=== PATIENT | male | born 1965 | race American Indian/Alaskan Native ===

== ENCOUNTER 2017-01-13 22:21 | Emergency (ER) | payer SELFPAY ==
--- NOTE | 2017-01-13 23:06 | Emergency Department Report ---
<LISETH PAINTER S - Last Filed: 01/14/17 02:35> ED Fall HPI - General Chief Complaint: Fall Stated Complaint: RIB PAIN/DIARRHEA Time Seen by Provider: 01/13/17 23:05 - Related Data Previous Rx's Medication Instructions Recorded Last Taken Type HYDROcodone/APAP 5-325 [[place] 1 each PO Q6HR PRN #12 tablet 01/14/17 Unknown Rx 5/325] Allergies Allergy/AdvReac Type Severity Reaction Status Date / Time No Known Allergies Allergy Verified 01/14/17 03:36 ED Review of Systems ROS: Stated complaint: RIB PAIN/DIARRHEA Other details as noted in HPI ED Past Medical Hx - Medications Home Medications: Home Medications Medication Instructions Recorded Confirmed Last Taken Type HYDROcodone/APAP 5-325 [[place] 1 each PO Q6HR PRN #12 tablet 01/14/17 Unknown Rx 5/325] ED Course Vital Signs 01/13/17 01/13/17 01/13/17 22:29 22:34 23:52 Temperature 97.5 F L 97.5 F L Pulse Rate 91 H 91 H Respiratory 20 18 20 Rate Blood Pressure 158/105 Blood Pressure 158/105 [Left] Blood Pressure 158/105 [Right] O2 Sat by Pulse 97 97 Oximetry 01/14/17 01/14/17 01/14/17 01:41 03:15 03:31 Temperature 98.5 F Pulse Rate 82 Respiratory 18 18 20 Rate Blood Pressure Blood Pressure [Left] Blood Pressure 138/82 [Right] O2 Sat by Pulse 99 Oximetry ED Medical Decision Making - Lab Data Result diagrams: 01/13/17 23:48 01/13/17 23:48 Critical care attestation.: If time is entered above; I have spent that time in minutes in the direct care of this critically ill patient, excluding procedure time. ED Disposition Clinical Impression: Neck pain, Rib pain Fall Qualifiers: Encounter type: initial encounter Qualified Code(s): W19.XXXA - Unspecified fall, initial encounter Back pain Qualifiers: Back pain location: back pain in unspecified location Chronicity: acute Back pain laterality: unspecified Qualified Code(s): M54.9 - Dorsalgia, unspecified Hypertension Qualifiers: Hypertension type: essential hypertension Qualified Code(s): I10 - Essential ( primary) hypertension Disposition: DISCHARGED TO HOME OR SELFCARE Is pt being admited?: No Condition: Stable Instructions: Chest Pain (ED), Costochondritis (ED), Hypertension (ED), Back Pain (ED), Fall Prevention (ED) Additional Instructions: Please follow-up with a primary care doctor in the next few days. Return to the emergency department with any worsening of your symptoms or any acute distress. You've been prescribed a medication that is sedating. Therefore this medication cannot be mixed with alcohol, or taken prior to driving, working, or being responsible for children. Prescriptions: HYDROcodone/APAP 5-325 [[place] 5/325] 1 each PO Q6HR PRN #12 tablet PRN Reason: Pain Referrals: PRIMARY CARE, [Primary Care Provider] - 3-5 Days HARI GALLOWAY MD, PHD [Staff Physician] - 3-5 Days [facility] [Outside] - 3-5 Days Time of Disposition: 02:38 <FABRICE GONZALEZ - Last Filed: 01/16/17 19:01> ED Fall HPI - General Source: patient, family Mode of arrival: Ambulatory Limitations: Physical Limitation - History of Present Illness Initial Comments: Patient here reports that he fell off the back of the truck At approximately 4: 30 PM. Truck was at a standstill and he was unloading IM and he said he tripped and fell. Patient is complaining of bilateral rib pain. Pain is worse on the left side than on the right side. He is complaining of chest wall pain, neck pain and back pain. Foot pain is 10 out of 10. Patient reports that he feels dizzy and had some nausea at this point he came to the emergency room. After the accident, patient went home. He said he applied ice and heat and also took aspirin. Patient reports that he lost consciousness for about 15 seconds which was witnessed and also complaining of headache and generalized. Denies alcohol use. He also reports that he was having some diarrhea. Patient left foot pain is shooting down his abdomen but denies any abdominal pain. He also reports that he was having some difficulty breathing. Patient's also complaining of lower extremity pain but he did not land on his feet. 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 denies: numbness, weakness, chest paint, abdominal pain, hematuria, confusion ED Review of Systems Comment: All other systems reviewed and negative Constitutional: denies: chills, fever Eyes: denies: vision change ENT: denies: hearing loss, epistaxis Respiratory: shortness of breath, SOB with exertion. denies: cough, orthopnea, SOB at rest, stridor, wheezing Cardiovascular: chest pain (chest wall pain). denies: palpitations, edema, syncope Gastrointestinal: nausea. denies: vomiting, diarrhea, constipation Musculoskeletal: back pain, arthralgia Skin: denies: rash Neurological: headache, abnormal gait, other (dizziness). denies: weakness, numbness, paresthesias, confusion ED Past Medical Hx - Past Medical History Previous Medical History?: Yes Hx Hypertension: Yes - Surgical History Past Surgical History?: No - Family History Family history: hypertension - Social History Smoking Status: Never Smoker Substance Use Type: None ED Physical Exam - General Limitations: No Limitations General appearance: alert - Head Head exam: Present: atraumatic, normocephalic, normal inspection - Expanded Head Exam Expanded Head exam: Present: other (mild erythema to occipital skull but no abrasion or contusion.). Absent: laceration, abrasion, contusion, hematoma, racoon eyes, kim's sign, general tenderness, tenderness of temporal artery, CSF rhinorrhea , CSF otorrhea - Eye Eye exam: Present: normal appearance, PERRL, EOMI, other (peripheral vision intact). Absent: nystagmus, periorbital swelling, periorbital tenderness - ENT ENT exam: Present: normal exam, normal orophraynx, mucous membranes moist, TM's normal bilaterally, normal external ear exam - Expanded ENT Exam peripheral vision intact Ear exam: Present: normal external inspection Mouth exam: Present: normal external inspection Throat exam: Positive: normal inspection - Neck Neck exam: Present: normal inspection, tenderness, full ROM. Absent: meningismus, lymphadenopathy - Expanded Neck Exam Expanded Neck exam: Present: tenderness. Absent: midline deformity, anterior neck swelling, tracheal deviation - Respiratory Respiratory exam: Present: normal lung sounds bilaterally, chest wall tenderness. Absent: respiratory distress, accessory muscle use, decreased breath sounds, prolonged expiratory - Cardiovascular Cardiovascular Exam: Present: regular rate, normal rhythm, normal heart sounds - GI/Abdominal GI/Abdominal exam: Present: soft, normal bowel sounds. Absent: distended, tenderness, guarding, rebound, rigid, organomegaly, mass - Extremities Exam Extremities exam: Present: normal inspection, full ROM, normal capillary refill. Absent: pedal edema, joint swelling, calf tenderness - Back Exam Back exam: Present: normal inspection, full ROM, tenderness, paraspinal tenderness, vertebral tenderness. Absent: CVA tenderness (R), CVA tenderness (L ), muscle spasm, rash noted - Expanded Back Exam Expanded Back exam: Present: saddle anesthesia Back exam: Negative Straight Leg Raising: Left, Right - Neurological Exam Neurological exam: Present: alert, oriented X3, abnormal gait (due to fall.), reflexes normal - Expanded Neurological Exam Expanded Neurological exam: Absent: innattentive, memory loss-remote event, memory loss- recent event, ataxia, receptive aphasia, expressive aphasia, total aphasia, tremor, protecting the airway Patient oriented to: Present: person, place, time Speech: Present: fluid speech Cranial nerves: EOM's Intact: Normal, Gag Reflex: Normal, Nystagmus: Normal, Facial Sensation: Normal Cerebellar function: Romberg: Normal Upper motor neuron: Pronator Drift: Normal, Sensory Extinction: Normal Sensory exam: Upper Extremity Light Touch: Normal, Upper Extremity Temperature: Normal, UE 2 Point Discrimination: Normal, Lower Extremity Light Touch: Normal, Lower Extremity Temperature: Normal, LE 2 Point Discrimination: Normal Motor strength exam: RUE: 5, LUE: 5, RLE: 5, LLE: 5 DTR: bicep (R): 2+, bicep (L): 2+, tricep (R): 2+, tricep (L): 2+, knee (R): 2+ , knee (L): 2+, ankle (R): 2+, ankle (L): 2+ Best Eye Response (Cotter): (4) open spontaneously Best Motor Response (Cotter): (6) obeys commands Best Verbal Response (Cotter): (5) oriented Sridhar Total: 15 - Psychiatric Psychiatric exam: Present: normal affect, normal mood - Skin Skin exam: Present: warm, dry, intact, normal color. Absent: rash ED Course - Reevaluation(s) Reevaluation #1: 01/14/17 00:01 Patient given Dilaudid 1 mg, Zofran 4 mg IV. IV fluid normal saline. Patient awaiting multiple scans. ED Medical Decision Making - Lab Data Result diagrams: 01/13/17 23:48 01/13/17 23:48 Lab Results 01/13/17 01/13/17 Range/Units 23:48 23:48 WBC 9.5 (4.5-11.0) K/mm3 RBC 5.08 H (3.65-5.03) M/mm3 Hgb 13.3 (11.8-15.2) gm/dl Hct 40.5 (35.5-45.6) % MCV 80 L (84-94) fl MCH 26 L (28-32) pg MCHC 33 (32-34) % RDW 15.4 H (13.2-15.2) % Plt Count 234 (140-440) K/mm3 Lymph % (Auto) 21.2 (13.4-35.0) % [place] % (Auto) 6.6 (0.0-7.3) % Eos % (Auto) 2.9 (0.0-4.3) % Baso % (Auto) 0.3 (0.0-1.8) % Lymph # 2.0 (1.2-5.4) K/mm3 [place] # 0.6 (0.0-0.8) K/mm3 Eos # 0.3 (0.0-0.4) K/mm3 Baso # 0.0 (0.0-0.1) K/mm3 Seg Neutrophils % 69.0 (40.0-70.0) % Seg Neutrophils # 6.6 (1.8-7.7) K/mm3 Sodium 141 (137-145) mmol/L Potassium 4.1 (3.6-5.0) mmol/L Chloride 100.5 (98-107) mmol/L Carbon Dioxide 25 (22-30) mmol/L Anion Gap 20 mmol/L BUN 16 (9-20) mg/dL Creatinine 1.2 (0.8-1.5) mg/dL Estimated GFR > 60 ml/min BUN/Creatinine Ratio 13.33 % Glucose 97 (75-100) mg/dL Calcium 9.1 (8.4-10.2) mg/dL Total Bilirubin 0.2 (0.1-1.2) mg/dL AST 43 H (5-40) units/L ALT 17 (7-56) units/L Alkaline Phosphatase 68 (35-129) units/L Total Protein 7.7 (6.3-8.2) g/dL Albumin 4.6 (3.9-5) g/dL Albumin/Globulin Ratio 1.5 % - Radiology Data Radiology results: report reviewed CT scan of the head and brain without contrast revealed no gross acute intracranial abnormality CT Scan of the chest without contrast reveals no gross acute intrathoracic injury. Mild atelectasis at the lung bases. Bilateral ribs are grossly intact no discrete fracture. bilateral rib x-ray grossly intact. Chest x-ray reveals shallow inspiration. Mild linear atelectasis at the lung bases. - Medical Decision Making ED course: Patient presents to the emergency room hours after falling off the back of his truck. Multiple scans were done which were negative. This is communicated to patient and family. Patient given Dilaudid 1 mg and Zofran 4 mg along with 1 L of IV fluid in emergency room. Pain controlled. Patient discharged from ED room after being treated and given multiple referrals. Patient discharged home with his family member with prescription for hydrocodone. ED Disposition Is pt being admited?: No Does the pt Need Aspirin: No
[2017-01-13] MEDS: DILAUDID IV ONE (23:52)
[2017-01-13] MEDS: NACL 0.9% 1000 ML 1,000 ML IV ONE (23:52)
[2017-01-13] MEDS: ZOFRAN IV ONE (23:53)
[2017-01-13 23:57] LABS: Basophils % (Auto) 0.3 % (0.0-1.8); Eosinophils % (Auto) 2.9 % (0.0-4.3); Hematocrit 40.5 % (35.5-45.6); Hemoglobin 13.3 gm/dl (11.8-15.2); Mean Corpuscular HGB Conc 33 % (32-34); Mean Corpuscular Hemoglobin 26 pg (28-32); Mean Corpuscular Volume 80 fl (84-94); Platelet Count 234 K/mm3 (140-440); Red Blood Count 5.08 M/mm3 (3.65-5.03); Red Cell Distribution Width 15.4 % (13.2-15.2); White Blood Count 9.5 K/mm3 (4.5-11.0)
--- NOTE | 2017-01-14 00:28 | Cat Scan Report ---
FINAL REPORT EXAM: CT HEAD/BRAIN WO CON HISTORY: Fall with haynes and loc COMPARISON: None available. TECHNIQUE: Axial images obtained skull base through vertex. FINDINGS: No acute intracranial hemorrhage, midline shift or pathologic extra axial fluid collection. Ventricles and cisterns are normal in size and configuration for the patient's age. Ruggiero-white differentiation preserved. Calvarium grossly intact. Mild to moderate polypoid mucosal thickening of the paranasal sinuses. Tiny amount of fluid within the left mastoid air cells. IMPRESSION: No grossly acute intracranial abnormality.
--- NOTE | 2017-01-14 00:32 | Cat Scan Report ---
FINAL REPORT EXAM: CT CERVICAL SPINE WO CON HISTORY: Fall with neck pain COMPARISON: None available. TECHNIQUE: Axial images obtained through the cervical spine. Additional sagittal and coronal reformatted images were obtained. FINDINGS: Straightening of the normal lordotic curvature of the cervical spine. Cervical vertebral body heights are preserved. No acute fracture or traumatic subluxation. Odontoid process, articular pillars and occipital condyles are intact. Moderate to severe loss of disc height C3-C4 through C6-C7 levels. Mild to moderate canal stenosis and moderate to severe foraminal narrowing at those levels due to endplate osteophyte, uncovertebral hypertrophy and facet degenerative changes. IMPRESSION: No acute fracture or subluxation of the cervical spine. There is straightening of the normal lordotic curvature which may relate to patient positioning or muscle spasm. Moderate degenerative changes of the cervical spine.
[2017-01-14 00:33] LABS: Alanine Aminotransferase 17 units/L (7-56); Albumin 4.6 g/dL (3.9-5); Albumin/Globulin Ratio 1.5 %; Alkaline Phosphatase 68 units/L (35-129); Anion Gap 20 mmol/L; BUN/Creatinine Ratio 13.33; Bilirubin,Total 0.2 mg/dL (0.1-1.2); Blood Urea Nitrogen 16 mg/dL (9-20); Calcium 9.1 mg/dL (8.4-10.2); Carbon Dioxide 25 mmol/L (22-30); Chloride 100.5 mmol/L (98-107); Glucose 97 mg/dL (75-100); Potassium 4.1 mmol/L (3.6-5.0); Sodium 141 mmol/L (137-145); Total Protein 7.7 g/dL (6.3-8.2)
--- NOTE | 2017-01-14 00:33 | XRay Report ---
FINAL REPORT EXAM: XR CHEST ROUTINE 2V HISTORY: fall with chest wall pain COMPARISON: None available. FINDINGS:: Frontal and lateral views of the chest obtained. Cardiac silhouette is within normal limits. Shallow inspiration with linear atelectasis at the lung bases. No large consolidation or effusion. No pneumothorax. Thoracic vertebral body heights are grossly preserved. IMPRESSION:: Shallow inspiration. Mild linear atelectasis at the lung bases.
--- NOTE | 2017-01-14 00:35 | XRay Report ---
FINAL REPORT EXAM: Bilateral ribs. HISTORY: fall with rib pain COMPARISON: Chest x-ray from the same date. FINDINGS: 5 total images of the ribs obtained. No step-off deformity identified. Nondisplaced fracture may not be apparent by plain film. Bilateral are grossly intact. IMPRESSION: Bilateral ribs are grossly intact.
--- NOTE | 2017-01-14 00:56 | Cat Scan Report ---
FINAL REPORT EXAM: CT CHEST WO CON HISTORY: fall from vehicle with rib pain lt chest /upper abd pain COMPARISON: Plain films of the chest and ribs from the same date. TECHNIQUE: Contiguous axial images were obtained. Coronal and sagittal reformats obtained. FINDINGS: Heart upper limits of normal in size. Thoracic aorta normal in caliber. No pathologically enlarged intrathoracic or axillary lymph nodes. Calcified right hilar lymph nodes. Mild linear atelectasis at the lung bases. No dense airspace consolidation or pleural effusion. No pneumothorax or pneumomediastinum. Tracheobronchial tree is patent. Visualized ribs are grossly intact. No discrete rib fracture. Thoracic vertebral body heights are preserved. The sternum is intact. IMPRESSION: No gross acute intrathoracic injury. Mild atelectasis at the lung bases. Bilateral ribs are grossly intact. No discrete fracture.
[2017-01-14] MEDS: MORPHINE IV ONE (01:41)
--- NOTE | 2017-01-14 02:10 | Cat Scan Report ---
FINAL REPORT PROCEDURE: CT ABDOMEN PELVIS WO CON TECHNIQUE: Computerized axial tomography of the abdomen and pelvis was performed without intravenous contrast. This study is performed without intravascular contrast material and its sensitivity for abdominal and pelvic pathology, including neoplasms, inflammation, abscess, free fluid, thrombosis, arterial dissection and infarction, is reduced compared with a contrast enhanced study. HISTORY: fall from vehicle with pelvic/back pain LT CHEST/UPPER ABD PAIN COMPARISON: No prior studies are available for comparison. FINDINGS: Visualized lower thorax: There is atelectasis at the lung bases.. There are calcified lymph nodes in the right hilum. Liver: Normal size and attenuation. Spleen: Normal size and attenuation. Gallbladder and biliary system: There has been a cholecystectomy.. Pancreas: Normal. Adrenals: Normal. Kidneys: Normal. GI tract: Normal. Lymph nodes and mesentery: Normal. Vasculature: Normal. Bladder: Normal. Reproductive organs: Normal. Peritoneum: There is no hemoperitoneum.. Musculoskeletal structures: No significant abnormality. Other: None. IMPRESSION: There is no evidence of acute traumatic injury..
[2017-01-14 03:16] VITALS: BP 138/82
[2017-01-14] MEDS ORDERED: TORADOL ONE (03:17)
[2017-01-14] MEDS: TORADOL IM ONE (03:31)
== END 2017-01-14 03:34 | disposition home or self-care (01) ==
LOC: ED 22:21
DX: R07.81 Pleurodynia (principal); M54.2 Cervicalgia; M54.9 Dorsalgia, unspecified; I10 Essential (primary) hypertension; W17.89XA Other fall from one level to another, initial encounter; Y93.89 Activity, other specified; Y92.89 Other specified places as the place of occurrence of the external cause; Y99.8 Other external cause status
CPT/HCPCS: 36415; 70450; 71020; 71110; 71250; 72125; 74176; 80053; 85025; 93005; 93010; 96361; 96372; 96374; 96375; 99284; J1170; J1885; J2270; J2405; J7030

== ENCOUNTER 2017-04-19 07:34 | Emergency (ER) | payer SELFPAY ==
[2017-04-19 07:42] VITALS: BP 144/95
--- NOTE | 2017-04-19 08:31 | Emergency Department Report ---
HPI - General Chief Complaint: Urogenital-Male Time Seen by Provider: 04/19/17 08:29 - HPI HPI: Patient is a 52-year-old male presents to ED complaining of burning type pain with urination as well as week. Patient states about almost a week ago he went home visiting his Stadol IM and had unprotected intercourse with female. States couple of days after he started to x-ray is some burning with urination. Patient denies penile discharge ,scrotum pain, penile pain, fever, nausea, vomiting, abdominal pain or any other problems. ED Past Medical Hx - Past Medical History Previous Medical History?: No Hx Hypertension: Yes - Surgical History Past Surgical History?: No - Social History Smoking Status: Never Smoker Substance Use Type: Alcohol - Medications Home Medications: Home Medications Medication Instructions Recorded Confirmed Last Taken Type HYDROcodone/APAP 5-325 [[place] 1 each PO Q6HR PRN #12 tablet 01/14/17 Unknown Rx 5/325] ED Review of Systems ROS: Stated complaint: STD Other details as noted in HPI Constitutional: denies: chills, fever Eyes: denies: eye pain, eye discharge, vision change ENT: denies: ear pain, throat pain Respiratory: denies: cough, shortness of breath, wheezing Cardiovascular: denies: chest pain, palpitations Endocrine: no symptoms reported Gastrointestinal: denies: abdominal pain, nausea, diarrhea Genitourinary: denies: urgency, dysuria Musculoskeletal: denies: back pain, joint swelling, arthralgia Skin: denies: rash, lesions Neurological: denies: headache, weakness, paresthesias Psychiatric: denies: anxiety, depression Hematological/Lymphatic: denies: easy bleeding, easy bruising Physical Exam - Physical Exam Vital Signs: Vital Signs 04/19/17 07:37 Temperature 97.7 F Pulse Rate 61 Respiratory 16 Rate Blood Pressure 144/95 O2 Sat by Pulse 99 Oximetry Physical Exam: GENERAL: Alert and oriented x3, no apparent distress, Normal Gait, atraumatic. HEAD: Head is normocephalic and a-traumatic. NECK: Supple. Non edematous, No carotid bruits. No lymphadenopathy or thyromegaly. No C-spine tenderness LUNGS: Symetrical with respiration, No wheezing, no rales or crackles, CTAB. HEART: S1, S2 present, regular rate and rhythm without murmur, no rubs, no gallops. ABDOMEN: No organomegaly was noted,Positive bowel sounds, soft, and non- distended. . Nontender to palpation on all Quadrants, NO CVA tenderness. UROGENITAL: No scrotal mass, Scrotum non tender to palpation bilaterally, no hernia, no scars or penile discharge. SKIN: Warm and dry, No lesions, No ulceration or induration present. ED Course Vital Signs 04/19/17 07:37 Temperature 97.7 F Pulse Rate 61 Respiratory 16 Rate Blood Pressure 144/95 O2 Sat by Pulse 99 Oximetry ED Medical Decision Making - Medical Decision Making 52-year-old male presents with STD exposure. ED course: Analysis and gonorrhea and Chlamydia cultures obtained. Urinalysis negative Patient received 250 mg of Rocephin, azithromycin 1 g, Flagyl 2 g. Discussed with patient possible STD due to exposure. Discussed with patient urinalysis findings and empiric treatment. Discussed prophylaxis treatment patient is to abstain from sex 7-10 days as treatment. Discussed patient partner knowledge and treatment. Discussed the follow-up with the health department for further STD testing. Patient's alert and oriented times 3 fast signs are normal patient is in no acute or respiratory discharge. Patient will be discharged home with instructions. He was treated empirically due to complaints of dysuria Critical care attestation.: If time is entered above; I have spent that time in minutes in the direct care of this critically ill patient, excluding procedure time. ED Disposition Clinical Impression: STD exposure, Dysuria Disposition: DISCHARGED TO HOME OR SELFCARE Is pt being admited?: No Does the pt Need Aspirin: No Condition: Stable Instructions: Safe Sex (ED), Sexually Transmitted Diseases (ED) Additional Instructions: Follow-up with the health department for further STD testing. you were Treated empirically for STDs in the ED Referrals: PRIMARY CARE, [Primary Care Provider] - 3-5 Days [facility] [Outside] - 3-5 Days [facility] [Outside] - 3-5 Days Time of Disposition: 09:40
[2017-04-19 09:16] LABS: Bilirubin,Urine NEG (Negative); Blood,Urine NEG (Negative); Ketones,Urine TR mg/dL (Negative); Leukocyte Esterase,Urine NEG (Negative); Mucus,Urine FEW /HPF; Nitrite,Urine NEG (Negative); Protein,Urine <15 mg/dL mg/dL (Negative); Urobilinogen,Urine < 2.0 mg/dL (<2.0); WBC,Urine < 1.0 /HPF (0.0-6.0)
[2017-04-19] MEDS ORDERED: FLAGYL PO ONE (09:27)
[2017-04-19] MEDS ORDERED: ROCEPHIN IM ONE (09:27)
[2017-04-19] MEDS ORDERED: ZITHROMAX PO ONE (09:27)
[2017-04-19] MEDS ORDERED: XYLOCAINE 1% MPF 5 mL INFILTRATI ONE (09:27)
== END 2017-04-19 10:22 | disposition home or self-care (01) ==
LOC: ED 07:34
DX: R30.0 Dysuria (principal); Z20.2 Contact with and (suspected) exposure to infections with a predominantly sexual mode of transmission; I10 Essential (primary) hypertension
CPT/HCPCS: 81001; 87591; 96372; 99283; J0696

== ENCOUNTER 2017-06-03 13:51 | Emergency (ER) | payer SELFPAY ==
[2017-06-03 14:49] LABS: Bilirubin,Urine NEG (Negative); Blood,Urine NEG (Negative); Ketones,Urine NEG (Negative); Leukocyte Esterase,Urine NEG (Negative); Mucus,Urine FEW /HPF; Nitrite,Urine NEG (Negative); Protein,Urine <15 mg/dL mg/dL (Negative)
[2017-06-03 14:51] LABS: Urobilinogen,Urine < 2.0 mg/dL (<2.0); WBC,Urine < 1.0 /HPF (0.0-6.0)
[2017-06-03] MEDS ORDERED: XYLOCAINE 1% MPF 5 mL INFILTRATI ONE (16:26)
[2017-06-03] MEDS ORDERED: ROCEPHIN IM ONE (16:26)
[2017-06-03] MEDS ORDERED: ZITHROMAX PO ONE (16:26)
--- NOTE | 2017-06-03 16:29 | Emergency Department Report ---
HPI - General Chief Complaint: Urogenital-Male Time Seen by Provider: 06/03/17 16:26 - HPI HPI: This is a 52-year-old Afro-[place] male presents to the emergency department from home with 2 different complaints. First, the patient complains of some intermittent headaches he has been getting ever since he fell sleep with the stove gas on. He says that the gas was on for multiple hours at night that was Wednesday, 4 days ago. The headaches come and go. He denies any vision change, slurred speech, vomiting, chest pain, shortness of breath or any neurological deficits but he does get some nausea. The second complaint is concern for possible STD as the patient says that he recently had a sexual encounter with a new partner that was "questionable. He did use a condom but it broke. He denies any discharge or lesions. He does have some burning with urination that has been going on for the past 1.5 weeks. He does not have a primary care doctor. No recent travel or sick contacts at home. ED Past Medical Hx - Past Medical History Previous Medical History?: Yes Hx Hypertension: Yes - Surgical History Past Surgical History?: No - Social History Smoking Status: Never Smoker Substance Use Type: Alcohol, Non Opiate Pain - Medications Home Medications: Home Medications Medication Instructions Recorded Confirmed Last Taken Type HYDROcodone/APAP 5-325 [[place] 1 each PO Q6HR PRN #12 tablet 01/14/17 Unknown Rx 5/325] ED Review of Systems ROS: Stated complaint: STD/SF Other details as noted in HPI Comment: All other systems reviewed and negative Constitutional: denies: chills, fever Eyes: denies: eye pain, eye discharge, vision change ENT: denies: ear pain, throat pain Respiratory: denies: cough, shortness of breath, wheezing Cardiovascular: denies: chest pain, palpitations Gastrointestinal: nausea. denies: abdominal pain, vomiting Genitourinary: dysuria. denies: discharge Musculoskeletal: denies: back pain, joint swelling, arthralgia Skin: denies: rash, lesions Neurological: headache. denies: weakness, paresthesias Physical Exam - Physical Exam Vital Signs: Vital Signs 06/03/17 13:59 Temperature 99 F Pulse Rate 90 Respiratory 20 Rate Blood Pressure 142/94 O2 Sat by Pulse 97 Oximetry Physical Exam: GENERAL: The patient is well-developed well-nourished. HEENT: Normocephalic. Atraumatic. Extraocular motions are intact. Patient has moist mucous membranes. Pupils equal reactive to light bilaterally. No nystagmus. NECK: Supple. Trachea is midline. CHEST/LUNGS: Clear to auscultation. There is no respiratory distress noted. HEART/CARDIOVASCULAR: Regular. There is no tachycardia. There is no gallop rub or murmur. ABDOMEN: Abdomen is soft, nontender. Patient has normal bowel sounds. There is no abdominal distention. SKIN: Skin is warm and dry. NEURO: The patient is awake, alert, and oriented. The patient is cooperative. The patient has no focal neurologic deficits. The patient has normal speech. Cranial nerves II through XII grossly intact. No pronator drift. MUSCULOSKELETAL: There is no tenderness or deformity. There is no limitation range of motion. There is no evidence of acute injury. ED Course Vital Signs 06/03/17 13:59 Temperature 99 F Pulse Rate 90 Respiratory 20 Rate Blood Pressure 142/94 O2 Sat by Pulse 97 Oximetry ED Medical Decision Making - Medical Decision Making 52-year-old male presents with 2 different complaints. One complaint is possible exposure to STDs. He was treated with Rocephin and azithromycin for possible exposure to gonorrhea and chlamydia. At his request a RPR was sent and he will be contacted if positive for penicillin treatment. His other complaint was headache. He does not have any focal, motor or sensory deficits and his cranial nerves are intact. He does not complain of any current discomfort. He is concerned that there was exposure to gases at his house a few days ago. Carboxyhemoglobin is 11 and ABG is unremarkable for any sign of carbon monoxide or toxic gas poisoning. Vital signs stable throughout his ED course. There is no urinary tract infection. He was given a referral for multiple primary care clinics. He will return to the ER with any worsening of symptoms or any acute distress. - Differential Diagnosis , monoxide exposure, tension headache, cluster headache, gonorrhea, chlamyd Critical Care Time: No Critical care attestation.: If time is entered above; I have spent that time in minutes in the direct care of this critically ill patient, excluding procedure time. ED Disposition Clinical Impression: Exposure to STD, Intermittent headache Disposition: DC- TO HOME OR SELFCARE Is pt being admited?: No Condition: Stable Instructions: Safe Sex (ED), Acute Headache (ED) Additional Instructions: Please follow-up with a primary care physician in the next few days. Return to the emergency department with any worsening of your symptoms or any acute distress. Referrals: PRIMARY CARE, [Primary Care Provider] - 3-5 Days [facility] [Outside] - 3-5 Days [facility] [Outside] - 3-5 Days [facility] [Outside] - 3-5 Days Time of Disposition: 18:07
[2017-06-03 17:59] LABS: ABG Base Excess -0.9 mmol/L (-2.0-3.0); ABG HCO3 24.5 mmol/L (20.0-26.0); ABG Oxygen Saturation 97.2 % (95.0-99.0); ABG PH 7.373 pH Units (7.350-7.450); ABG PO2 93.7 mm Hg (80.0-90.0)
[2017-06-03 18:33] VITALS: BP 140/91
== END 2017-06-03 18:33 | disposition home or self-care (01) ==
LOC: ED 13:51
DX: R51 Headache (principal); Z20.2 Contact with and (suspected) exposure to infections with a predominantly sexual mode of transmission
CPT/HCPCS: 36415; 81001; 82375; 82803; 86592; 96372; 99283; J0696

== ENCOUNTER 2017-06-26 20:26 | Inpatient (IN) | payer OTHER ==
[2017-06-26] MEDS ORDERED: BABY ASPIRIN PO ONE (21:12)
--- NOTE | 2017-06-26 21:15 | Emergency Department Report ---
ED Chest Pain HPI - General Chief Complaint: Chest Pain Stated Complaint: CHEST PAIN Time Seen by Provider: 06/26/17 21:11 Source: patient Mode of arrival: Ambulatory Limitations: No Limitations - History of Present Illness Initial Comments: 52-year-old male who presents with chest pain that radiates to his back. Patient states that he is hypertension and the chest pain is severe 9 out of 10 nothing makes it better or worse. He says is an achy type of pain and he gets short of breath while he has the chest pain. The chest pain radiates to his back. Patient states he's never had chest pain like this before in his life. He states that he supposed to be taking aspirin but he has not been taking it.. - Related Data Previous Rx's Medication Instructions Recorded Last Taken Type HYDROcodone/APAP 5-325 [[place] 1 each PO Q6HR PRN #12 tablet 01/14/17 Unknown Rx 5/325] Allergies Allergy/AdvReac Type Severity Reaction Status Date / Time ibuprofen Allergy Unknown Verified 04/19/17 07:43 nortriptyline Allergy Anaphylaxis Verified 04/19/17 07:43 Heart Score - HEART Score History: Moderately suspicious EKG: Non-specific Age: 45-65 Risk factors: 1-2 risk factors Troponin: < normal limit HEART Score: 4 ED Review of Systems ROS: Stated complaint: CHEST PAIN Other details as noted in HPI Constitutional: denies: chills, fever Eyes: denies: eye pain, eye discharge, vision change ENT: denies: ear pain, throat pain Respiratory: denies: cough, shortness of breath, wheezing Cardiovascular: chest pain Endocrine: no symptoms reported Gastrointestinal: denies: abdominal pain, nausea, diarrhea Genitourinary: denies: urgency, dysuria Musculoskeletal: back pain Skin: denies: rash, lesions Neurological: denies: headache, weakness, paresthesias Psychiatric: denies: anxiety, depression Hematological/Lymphatic: denies: easy bleeding, easy bruising ED Past Medical Hx - Past Medical History Hx Hypertension: Yes - Surgical History Past Surgical History?: No - Social History Smoking Status: Never Smoker Substance Use Type: Alcohol - Medications Home Medications: Home Medications Medication Instructions Recorded Confirmed Last Taken Type HYDROcodone/APAP 5-325 [[place] 1 each PO Q6HR PRN #12 tablet 01/14/17 Unknown Rx 5/325] ED Physical Exam - General Limitations: No Limitations General appearance: alert, in no apparent distress - Head Head exam: Present: atraumatic, normocephalic - Eye Eye exam: Present: normal appearance - ENT ENT exam: Present: mucous membranes moist - Neck Neck exam: Present: normal inspection - Respiratory Respiratory exam: Present: normal lung sounds bilaterally. Absent: respiratory distress - Cardiovascular Cardiovascular Exam: Present: regular rate, normal rhythm. Absent: systolic murmur, diastolic murmur, rubs, gallop - GI/Abdominal GI/Abdominal exam: Present: soft, normal bowel sounds - Rectal Rectal exam: Present: deferred - Extremities Exam Extremities exam: Present: normal inspection - Back Exam Back exam: Present: normal inspection - Neurological Exam Neurological exam: Present: alert, oriented X3 - Skin Skin exam: Present: diaphoretic ED Course Vital Signs 06/26/17 06/26/17 06/26/17 20:45 21:33 21:35 Temperature 98.5 F 99 F 99.2 F Pulse Rate 99 H 96 H 96 H Respiratory 16 18 Rate Blood Pressure 137/85 121/67 Blood Pressure 121/67 [Left] O2 Sat by Pulse 95 96 96 Oximetry 06/26/17 06/27/17 22:48 02:02 Temperature 98 F Pulse Rate 84 Respiratory 18 18 Rate Blood Pressure Blood Pressure 110/70 [Left] O2 Sat by Pulse 97 Oximetry - Reevaluation(s) Reevaluation #1: 06/27/17 01:32 And states that his chest pains better. OMAR score - Omar Score Age > 65: (0) No Aspirin use within the Past 7 Days: (0) No 3 or more CAD Risk Factors: (1) Yes 2 or more Angina events in past 24 hrs: (1) Yes Known CAD with more than 50% Stenosis: (0) No Elevated Cardiac Markers: (0) No ST Deviation Greater than 0.5mm: (0) No OMAR Score: 2 ED Medical Decision Making - Lab Data Result diagrams: 06/26/17 22:02 06/26/17 22:02 Laboratory Results - last 24 hr 06/26/17 06/26/17 06/27/17 22:02 22:02 00:27 WBC 6.5 RBC 4.91 Hgb 12.9 Hct 39.7 MCV 81 L MCH 26 L MCHC 33 RDW 16.0 H Plt Count 204 Lymph % (Auto) 37.0 H Bennett % (Auto) 7.0 Eos % (Auto) 5.5 H Baso % (Auto) 0.2 Lymph # 2.4 Bennett # 0.5 Eos # 0.4 Baso # 0.0 Seg Neutrophils % 50.3 Seg Neutrophils # 3.3 Sodium 142 Potassium 4.1 Chloride 103.4 Carbon Dioxide 23 Anion Gap 20 BUN 13 Creatinine 1.4 Estimated GFR > 60 BUN/Creatinine Ratio 9.28 Glucose 87 Calcium 8.7 Troponin T < 0.010 < 0.010 - EKG Data -: EKG Interpreted by Me - EKG Data 06/27/17 01:33 EKG shows normal sinus rhythm no ST segment elevations or T-wave inversions. No peaked T waves no LVH. - Radiology Data Radiology results: pending - Medical Decision Making Chief medical diagnosis: non-STEMI Differential medical diagnosis: Aortic dissection, pneumothorax We'll get CBC, CMP, troponin, EKG, dissection protocol. Critical care attestation.: If time is entered above; I have spent that time in minutes in the direct care of this critically ill patient, excluding procedure time. ED Disposition Clinical Impression: Myalgia Chest pain Qualifiers: Chest pain type: unspecified Qualified Code(s): R07.9 - Chest pain, unspecified Disposition: -09 OP ADMIT IP TO THIS HOSP Is pt being admited?: Yes Does the pt Need Aspirin: No Condition: Stable Instructions: Chest Pain (ED) Referrals: PRIMARY CARE, [Primary Care Provider] - 3-5 Days Time of Disposition: 02:13
[2017-06-26] MEDS ORDERED: MORPHINE IV ONE (21:23)
[2017-06-26 22:17] LABS: Basophils % (Auto) 0.2 % (0.0-1.8); Eosinophils % (Auto) 5.5 % (0.0-4.3); Hematocrit 39.7 % (35.5-45.6); Hemoglobin 12.9 gm/dl (11.8-15.2); Mean Corpuscular HGB Conc 33 % (32-34); Mean Corpuscular Hemoglobin 26 pg (28-32); Mean Corpuscular Volume 81 fl (84-94); Platelet Count 204 K/mm3 (140-440); Red Blood Count 4.91 M/mm3 (3.65-5.03); White Blood Count 6.5 K/mm3 (4.5-11.0)
--- NOTE | 2017-06-26 22:34 | XRay Report ---
FINAL REPORT EXAM: XR CHEST ROUTINE 2V HISTORY: chest pain TECHNIQUE: 2 views of the chest. PRIORS: None. FINDINGS: The cardiomediastinal silhouette appears normal. The lungs are clear. The bones and soft tissues are unremarkable. IMPRESSION: No evidence of acute cardiopulmonary disease
[2017-06-26 23:09] LABS: BUN/Creatinine Ratio 9.28; Blood Urea Nitrogen 13 mg/dL (9-20); Carbon Dioxide 23 mmol/L (22-30); Glucose 87 mg/dL (75-100)
[2017-06-26 23:10] LABS: Anion Gap 20 mmol/L; Calcium 8.7 mg/dL (8.4-10.2); Chloride 103.4 mmol/L (98-107); Potassium 4.1 mmol/L (3.6-5.0); Sodium 142 mmol/L (137-145)
[2017-06-26] MEDS ORDERED: NACL ONE (23:13)
[2017-06-27] MEDS ORDERED: SUBLIMAZE IV ONE ×2 (01:46)
--- NOTE | 2017-06-27 01:59 | Cat Scan Report ---
FINAL REPORT EXAM: CT ANGIO CHEST HISTORY: concern for dissection chest pain COMPARISON: None available. TECHNIQUE: Contiguous axial images were obtained. Additional sagittal and coronal reformatted images were obtained. Max intensity projection images. 100 cc Omnipaque 350. FINDINGS: Heart upper limits of normal in size. Thoracic aorta normal in caliber. No dissection. No pulmonary embolus. No pathologically enlarged intrathoracic or axillary lymph nodes. Noncalcified nodule right middle lobe measuring 5 millimeters. Multiple calcified right hilar lymph nodes. Mild linear atelectasis or scarring at the lung bases. No dense consolidation or effusion. Remote left-sided rib fractures. Gallbladder surgically absent. Thoracic vertebral body heights are preserved. IMPRESSION: Thoracic aorta is normal in caliber. No dissection or rupture. No pulmonary embolus. Remote granulomatous disease. Mild linear scarring or atelectasis at the lung bases. No acute infiltrates or effusions. Noncalcified nodule right middle lobe measuring 5 millimeters. This may be postinflammatory. Followup chest CT suggested within the next 12 months to ensure stability.
--- NOTE | 2017-06-27 02:11 | Cat Scan Report ---
FINAL REPORT EXAM: CT ANGIO ABDOMEN PELVIS HISTORY: concern for dissection chest pain COMPARISON: None available. TECHNIQUE: Contiguous axial images were obtained. Additional sagittal and coronal reformatted images were obtained. Administration of IV contrast given per institution protocol. Images submitted for interpretation. 100 cc Omnipaque 350. FINDINGS: Abdominal aorta is normal in caliber. Aorta measures 2 centimeters in diameter. No dissection or rupture. Celiac, superior mesenteric, bilateral renal, inferior mesenteric arteries are patent. Iliac arteries are patent. Please see CT of the chest from the same day for further details of the lung bases. Gallbladder surgically absent. Liver, spleen, pancreas and adrenal glands are unremarkable. No solid renal lesion. No hydronephrosis. Urinary bladder and prostate gland are grossly unremarkable. No free fluid or lymphadenopathy. The appendix is normal in caliber. There is fluid-like stool in the colon. No associated wall thickening or fat stranding. Tiny umbilical hernia containing fat only. Bony pelvis and lumbar spine are grossly intact. IMPRESSION: Abdominal aorta is normal in caliber. No dissection or rupture. Fluid-like stool within the colon. This is a nonspecific finding that can be seen in the setting of very early or mild inflammation the colon. No other gross acute findings.
--- NOTE | 2017-06-27 03:18 | History and Physical Report ---
History of Present Illness Date of examination: 06/27/17 History of present illness: 64-year-old man history of hypertension comes emergency room with complaints of left-sided chest pain that started yesterday. He describes the pain as a pressure-like sensation in the epigastric area, constant, intensity 7/10, radiating to the left side of the back, he cannot identify exacerbating or relieving factors. He denies nausea vomiting, diaphoresis, palpitation, shortness of breath. Review Of Systems: Constitutional: no fever, chills, weight loss Ears, eyes, nose, mouth and throat: no nasal congestion, no nasal discharge, no sinus pressure, blurry vision, diplopia Neck: No neck pain or rigidity. Cardiovascular: chest pain, orthopnea, palpitations Respiratory: No shortness of breath, cough Gastrointestinal: abdominal pain, hematochezia Genitourinary : no dysuria, frequency , hematuria Musculoskeletal: no joint swelling or muscle ache Integumentary: no rash, no pruritis Neurological: no parathesia Endocrine: no cold or heat intolerance, no polyuria or polydipsia Hematologic/Lymphatic: no easy bruising, no easy bleeding, no gland swelling Allergic/Immunologic: no urticaria, no angioedema. PAST MEDICAL HISTORY:hypertension PAST SURGICAL HISTORY: None FAMILY HISTORY: Hypertension SOCIAL HISTORY: Social alcohol, no tobacco or drugs Medications and Allergies Allergies Allergy/AdvReac Type Severity Reaction Status Date / Time ibuprofen Allergy Unknown Verified 04/19/17 07:43 nortriptyline Allergy Anaphylaxis Verified 04/19/17 07:43 Home Medications Medication Instructions Recorded Confirmed Last Taken Type HYDROcodone/APAP 5-325 [[place] 1 each PO Q6HR PRN #12 tablet 01/14/17 Unknown Rx 5/325] Exam - Physical Exam Narrative exam: Gen. appearance: Patient lying in bed, no apparent distress HEENT: Normocephalic, atraumatic, pupils equally round and reactive to light, extraocular movement intact, and no sclericterus,. No JVD or thyromegaly or nodule,neck supple, no carotid bruit ,mucous membranes moist, no exudate or erythema Heart: S1, S2, regular rate and rhythm Lungs: Clear to auscultation bilaterally, breathing comfortable Abdomen: Positive bowel sounds, nontender, nondistended, no organomegaly Extremity: No edema, cyanosis, clubbing Skin: No rash, nodules, warm, dry Neuro: Oriented 3, cranial nerves II-12 intact, speech is fluent, motor and sensory intact - Constitutional Vitals: Temp Pulse Resp BP Pulse Ox 98 F 84 18 115/73 97 06/27/17 03:07 06/27/17 03:07 06/27/17 03:08 06/27/17 03:07 06/27/17 03:07 Results - Labs CBC & Chem 7: 06/26/17 22:02 06/26/17 22:02 Labs: Abnormal lab results 06/26/17 Range/Units 22:02 MCV 81 L (84-94) fl MCH 26 L (28-32) pg RDW 16.0 H (13.2-15.2) % Lymph % (Auto) 37.0 H (13.4-35.0) % Eos % (Auto) 5.5 H (0.0-4.3) % - Imaging and Cardiology EKG: image reviewed CT scan - abdomen: report reviewed CT scan - chest: report reviewed CT scan - pelvis: report reviewed Assessment and Plan Assessment Chest pain, rule out ACS Hypertension Plan admits medicine Check cardiac enzymes, lipid profile and obtain a stress test Start aspirin, DVT prophylaxis Continue outpatient medications
[2017-06-27] MEDS ORDERED: DULCOLAX PR PRN (03:56)
[2017-06-27] MEDS ORDERED: MILK OF MAGNESIA PO PRN (03:56)
[2017-06-27] MEDS ORDERED: SODIUM CHLORIDE FLUSH SYRINGE 10 ML IV PRN (03:56)
[2017-06-27] MEDS ORDERED: TYLENOL PO PRN (03:56)
[2017-06-27] MEDS ORDERED: ZOFRAN IV PRN (03:56)
[2017-06-27] MEDS: MORPHINE IV PRN ×2 (04:54→10:56)
[2017-06-27] MEDS ORDERED: LEXISCAN IV ONE ×2 (08:12→08:19)
[2017-06-27] MEDS ORDERED: LOVENOX SUB-Q SCH (10:00)
--- NOTE | 2017-06-27 13:00 | Discharge Summary ---
Providers - Providers Date of Admission: 06/27/17 03:18 Date of discharge: 06/27/17 Attending physician: SYLVIA NOONAN Primary care physician: CIRCUS ROUSTABOUT Hospitalization Reason for admission: left sided chest pain Condition: Stable Pertinent studies: X-ray; normal study CT angiogram of the abdomen abdominal aorta is normal fluid like stool with no: Nonspecific findings no other abnormalities noted CTA chest; thoracic aorta normal ,no dissection The remote granulomatous disease mild linear scarring or atelectasis at the lung base no acute infiltrates noncalcified nodule right middle lobe measuring 5 mm follow-up CT within 12 months Nuclear stress test; negative for reversible ischemia, normal left ventricle function Hospital course: Very pleasant 64-year-old male patient with significant past medical history of hypertension was admitted through emergency room with left-sided chest pain of one-day duration patient was symptomatically managed, underwent nuclear stress test which was negative for reversible ischemia and preserved left and couldn't function Patient's symptoms significantly improved Mild elevation of LDL, advised exercise as tolerated, low cholesterol diet, repeat lipid panel in 6 months at PMDs office, no improvement he may need lipid- lowering medications Patient also had multiple incidental findings on chest CT; advised repeat CT chest in 1 year for follow-up at PMD's office, and verbalized understanding Today he is comfortable in bed alert awake oriented 3 not in acute distress Vital signs stable, [id number] evaluation and physical examination done by me prior to discharge is unremarkable as detailed below Hemodynamically and clinically stable for discharge Should he have recurrent chest pain or chest discomfort, he may need extensive evaluation by cardiology as outpatient versus inpatient Patient verbalized understanding Discharge Diagnosis; Chest pain due to costochondritis/musculoskeletal Incidental finding on CT scan/advised repeat CT scan in one year Gastroesophageal reflux disease Obesity Dyslipidemia Disposition: DC-01 TO HOME OR SELFCARE Time spent for discharge: 31 min Core Measure Documentation - Palliative Care Palliative Care/ Comfort Measures: Not Applicable - Core Measures Any of the following diagnoses?: none Exam - Constitutional Vitals: Temp Pulse Resp BP Pulse Ox 98.2 F 80 18 133/87 95 06/27/17 07:30 06/27/17 09:07 06/27/17 07:30 06/27/17 09:07 06/27/17 07:30 General appearance: Present: no acute distress, well-nourished - EENT Eyes: Present: PERRL, EOM intact - Neck Neck: Present: supple, normal ROM - Respiratory Respiratory effort: normal Respiratory: bilateral: diminished, negative: rales, rhonchi, wheezing - Cardiovascular Rhythm: regular Heart Sounds: Present: S1 & S2 - Extremities Extremities: no ischemia, pulses intact, pulses symmetrical - Abdominal General gastrointestinal: Present: soft, non-tender, non-distended, normal bowel sounds - Integumentary Integumentary: Present: clear, warm - Musculoskeletal Musculoskeletal: strength equal bilaterally, generalized weakness - Psychiatric Psychiatric: appropriate mood/affect, cooperative - Neurologic Neurologic: CNII-XII intact Plan Activity: no restrictions Diet: low fat, low salt Additional Instructions: Incidental findings on CT chest, advised to repeat CT chest in one year at [facility]Ds office. Cholesterol diet, exercise as tolerated, repeat lipid panel in 6 months at [facility] office Follow up with: PRIMARY CARE, [Primary Care Provider] - 3-5 Days Forms: Work/School Release Form Prescriptions: Famotidine/Ca Carb/Mag Hydrox [Pepcid Complete Tablet Chew] 1 each PO BID #30 tab.chew RX: HYDROcodone/APAP 5-325 [[place] 5-325 mg TAB] 1 each PO BID PRN #10 tablet PRN Reason: Pain
[2017-06-27 13:44] VITALS: BP 112/72
--- NOTE | 2017-06-27 21:26 | Treadmill Report ---
Myocardial perfusion scan was done using the standard Lexiscan protocol. Scans were done pre and post- Lexiscan stress test. Rest and stress images were compared, gated and wall motion analysis was done. FINDINGS: Homogenous uptake of tracer noted in the rest and stress images. Comparison of the rest and stress images revealed no fixed or reversible defect suggestive of infarct or ischemia. Gated analysis reveals normal wall motion. LVEF was normal. No significant RV wall motion abnormality noted. IMPRESSION: 1. Normal myocardial perfusion scan. 2. Preserved LV systolic function. 3. Low risk cardiac study. JOB# [id number] LATASHA/MARCIO HUFF
== END 2017-06-27 14:57 | disposition home or self-care (01) | DRG 206 ==
LOC: ED 20:26 → 4A 06-27 03:18
PROVIDERS: ADMIT Internal Medicine; ATTEND Internal Medicine
DX: M94.0 Chondrocostal junction syndrome [Tietze] (principal); I10 Essential (primary) hypertension; Z88.8 Allergy status to other drugs, medicaments and biological substances; Z88.6 Allergy status to analgesic agent; Z72.89 Other problems related to lifestyle; Z82.49 Family history of ischemic heart disease and other diseases of the circulatory system; K21.9 Gastro-esophageal reflux disease without esophagitis; E78.5 Hyperlipidemia, unspecified; E66.9 Obesity, unspecified; Z68.35 Body mass index [BMI] 35.0-35.9, adult
CPT/HCPCS: 36415; 71020; 71275; 74174; 78452; 80048; 80061; 84484; 85025; 93005; 93010; 93017; 96374; 96375; A9502; J1650; J2270; J2785; J3010; Q9967

== ENCOUNTER 2017-07-31 08:00 | Emergency (ER) | payer SELFPAY ==
[2017-07-31 08:11] VITALS: BP 148/103
[2017-07-31 10:32] LABS: Bilirubin,Urine NEG (Negative); Blood,Urine NEG (Negative); Ketones,Urine TR mg/dL (Negative); Leukocyte Esterase,Urine NEG (Negative); Mucus,Urine FEW /HPF; Nitrite,Urine NEG (Negative); Protein,Urine <15 mg/dL mg/dL (Negative); Urobilinogen,Urine < 2.0 mg/dL (<2.0)
[2017-07-31] MEDS ORDERED: XYLOCAINE 1% MPF 5 mL INFILTRATI ONE (10:53)
[2017-07-31] MEDS ORDERED: ZITHROMAX PO ONE (10:53)
[2017-07-31] MEDS ORDERED: ROCEPHIN IM ONE (10:53)
--- NOTE | 2017-07-31 19:42 | Emergency Department Report ---
Entered by JANIYA MONZON, acting as scribe for EDUARDO MARCH NP. ED Male HPI - General Chief complaint: Urogenital-Male Stated complaint: STD CHECK Time Seen by Provider: 07/31/17 10:46 Source: patient Mode of arrival: Ambulatory Limitations: No Limitations - History of Present Illness Initial comments: 52 y/o male presents to the ED c/o possible STD infection x 1 week. Associated symptoms include sore throat, nausea, diarrhea and dysuria but denies rash, discharge, fever, chills, and vomiting. Patient states he is concerned about possible STD exposure from performing oral sex on a one time female partner. No alleviating or aggravating factors. NKDA. PT has hx of STD PT sexual active and does not use barrier method. PT reports "the sex thing went wrong" MD Complaint: dysuria, other (STD sore throat ) Onset/Timin -: week(s) Location: penis Radiation: none Severity: mild Improves with: none Worsens with: none new sexual partner dysuria, other (nausea, diarrhea, sore thorat, denies: fever, chills, vomiting) . denies: discharge, rash - Related Data Sexually active: Yes Previous Rx's Medication Instructions Recorded Last Taken Type Famotidine/Ca Carb/Mag Hydrox 1 each PO BID #30 tab.chew 06/27/17 Unknown Rx [Pepcid Complete Tablet Chew] HYDROcodone/APAP 5-325 [[place] 1 each PO BID PRN #10 tablet 06/27/17 Unknown Rx 5-325 mg TAB] Allergies Allergy/AdvReac Type Severity Reaction Status Date / Time ibuprofen Allergy Unknown Verified 04/19/17 07:43 nortriptyline Allergy Anaphylaxis Verified 04/19/17 07:43 ED Review of Systems Comment: All other systems reviewed and negative Constitutional: denies: chills, fever ENT: throat pain Gastrointestinal: nausea, diarrhea. denies: abdominal pain, vomiting Genitourinary: dysuria. denies: discharge, testicular pain, testicular mass Skin: denies: rash ED Past Medical Hx - Past Medical History Hx Hypertension: Yes Hx CVA: No Hx Heart Attack/AMI: Yes Hx Congestive Heart Failure: No Hx Diabetes: No Hx Deep Vein Thrombosis: No Hx GERD: No Hx Arthritis: No Hx Headaches / Migraines: No Hx Asthma: No Hx COPD: No Hx Dementia: No Hx HIV: No - Surgical History Past Surgical History?: No - Social History Smoking Status: Never Smoker Substance Use Type: Alcohol - Medications Home Medications: Home Medications Medication Instructions Recorded Confirmed Last Taken Type Famotidine/Ca Carb/Mag Hydrox 1 each PO BID #30 tab.chew 06/27/17 Unknown Rx [Pepcid Complete Tablet Chew] HYDROcodone/APAP 5-325 [[place] 1 each PO BID PRN #10 tablet 06/27/17 Unknown Rx 5-325 mg TAB] ED Physical Exam - General Limitations: No Limitations General appearance: alert, in no apparent distress - Head Head exam: Present: atraumatic, normocephalic, normal inspection - Eye Eye exam: Present: normal appearance, PERRL, EOMI. Absent: scleral icterus, conjunctival injection, nystagmus, periorbital swelling, periorbital tenderness Pupils: Present: normal accommodation - ENT ENT exam: Present: normal orophraynx, mucous membranes moist, TM's normal bilaterally, normal external ear exam. Absent: normal exam - Expanded ENT Exam Expanded Ear exam: Present: normal external inspection Mouth exam: Present: normal external inspection, tongue normal Teeth exam: Present: normal inspection Throat exam: Positive: tonsillar exudate (left tonsil ), other (bilateral tonsil hypertrophy ). Negative: R peritonsillar mass, L peritonsillar mass - Neck Neck exam: Present: normal inspection, full ROM. Absent: tenderness, meningismus, lymphadenopathy, thyromegaly - Respiratory Respiratory exam: Present: normal lung sounds bilaterally. Absent: respiratory distress, wheezes, rales, rhonchi, stridor, chest wall tenderness, accessory muscle use, decreased breath sounds, prolonged expiratory - Cardiovascular Cardiovascular Exam: Present: regular rate, normal rhythm, normal heart sounds. Absent: bradycardia, tachycardia, irregular rhythm, systolic murmur, diastolic murmur, rubs, gallop - GI/Abdominal GI/Abdominal exam: Present: soft, normal bowel sounds. Absent: distended, tenderness, guarding, rebound, rigid, diminished bowel sounds - Extremities Exam Extremities exam: Present: normal inspection, full ROM, normal capillary refill. Absent: tenderness, pedal edema, joint swelling, calf tenderness - Back Exam Back exam: Present: normal inspection, full ROM. Absent: tenderness, CVA tenderness (R), CVA tenderness (L), muscle spasm, paraspinal tenderness, vertebral tenderness, rash noted - Neurological Exam Neurological exam: Present: alert, oriented X3 - Psychiatric Psychiatric exam: Present: normal affect, normal mood - Skin Skin exam: Present: warm, dry, intact, normal color. Absent: rash ED Course Vital Signs 07/31/17 08:05 Temperature 98.6 F Pulse Rate 73 Respiratory 16 Rate Blood Pressure 148/103 O2 Sat by Pulse 98 Oximetry - Reevaluation(s) Reevaluation #1: 07/31/17 11:23 PT empirically treated for GC/ CT. PT aware of available lab results. PT aware cultures pending. PT advised to use a barrier method. PT advised to refrain from sexual activity x 1 week. - Pulse Oximetry Interpretation Digit-Finger Initial Pulse Oximetry Readin Actions Taken: none ED Medical Decision Making - Differential Diagnosis std, uti, strep pharyngitis Critical Care Time: No ED Disposition Clinical Impression: Risky sexual behavior, Dysuria, Exudative pharyngitis Disposition: - TO HOME OR SELFCARE Is pt being admited?: No Does the pt Need Aspirin: No Condition: Stable Instructions: Chlamydia Infection (ED), Sexually Transmitted Diseases (ED), Safe Sex (ED), Hypertension (ED) Additional Instructions: No sex for the next 7 days Follow up with your doctor for full panel std testing If your cultures come back positive, someone from the hospital should call you. However, I would encourage you to go to medical records at the end of next week and request a copy of your lab work Your partner (s) may need testing/ treatment Have your bp rechecked at follow up Referrals: PRIMARY CARE, [Primary Care Provider] - 3-5 Days NIRAV NAIR MD [Staff Physician] - 3-5 Days [facility] [Outside] - 3-5 Days [facility] [Outside] - 3-5 Days Time of Disposition: 11:28 This documentation as recorded by the NA trejo ELIZABETH,accurately reflects the service I personally performed and the decisions made by me,EDUARDO MARCH, JANNA.
== END 2017-07-31 11:32 | disposition home or self-care (01) ==
LOC: ED 08:00
DX: J02.9 Acute pharyngitis, unspecified (principal); R30.0 Dysuria; I10 Essential (primary) hypertension; I25.2 Old myocardial infarction; Z88.6 Allergy status to analgesic agent
CPT/HCPCS: 81001; 87116; 87430; 87591; 96372; 99283; J0696

== ENCOUNTER 2017-12-23 14:51 | Emergency (ER) | payer BC ==
[2017-12-23] MEDS ORDERED: ZOFRAN ODT PO ONE (18:50)
[2017-12-23] MEDS ORDERED: PERCOCET 5/325 PO ONE (18:50)
--- NOTE | 2017-12-23 18:52 | Emergency Department Report ---
Chief Complaint: Abdominal Pain Stated Complaint: ABDOMINAL PAIN - HPI History of Present Illness: 52 yo female with 2 weeks of upper abdominal pain with vomiting and diarrhea. Patient is tender on exam at the epigastric and right upper quadrant. - Exam Vital Signs: Vital Signs 12/23/17 15:01 Temperature 98.2 F Pulse Rate 78 Respiratory 16 Rate Blood Pressure 134/96 O2 Sat by Pulse 96 Oximetry MSE screening note: Focused history and physical exam performed. Due to findings the following was ordered: ED Disposition for MSE Condition: Stable Referrals: PRIMARY CARE, [Primary Care Provider] - 3-5 Days
[2017-12-23 20:01] LABS: Alanine Aminotransferase 11 units/L (7-56); Albumin 4.5 g/dL (3.9-5); BUN/Creatinine Ratio 9; Blood Urea Nitrogen 12 mg/dL (9-20); Calcium 9.1 mg/dL (8.4-10.2); Hemolysis Index 18; Lipase 24 units/L (13-60)
[2017-12-23 20:02] LABS: Basophils % (Auto) 0.3 % (0.0-1.8); Eosinophils # (Auto) 0.1 K/mm3 (0.0-0.4); Eosinophils % (Auto) 1.3 % (0.0-4.3); Hematocrit 47.2 % (35.5-45.6); Hemoglobin 15.2 gm/dl (11.8-15.2); Lymphocytes # (Auto) 1.8 K/mm3 (1.2-5.4); Mean Corpuscular HGB Conc 32 % (32-34); Mean Corpuscular Hemoglobin 27 pg (28-32); Mean Corpuscular Volume 84 fl (84-94); Monocytes # (Auto) 0.6 K/mm3 (0.0-0.8); Monocytes % (Auto) 6.9 % (0.0-7.3); Platelet Count 238 K/mm3 (140-440); Red Blood Count 5.64 M/mm3 (3.65-5.03); Red Cell Distribution Width 15.6 % (13.2-15.2)
--- NOTE | 2017-12-23 20:24 | Ultrasound Report ---
FINAL REPORT EXAM: US ABDOMEN COMPLETE HISTORY: epigastric upper abd pain TECHNIQUE: Longitudinal and transverse grayscale and color sonographic images were performed Comparison: CT abdomen and pelvis 06/27/2017 FINDINGS: The pancreas is obscured by bowel gas. The liver is within normal limits without focal lesion. Normal echogenicity and echotexture. Gallbladder is surgically absent. Common duct measures 3.4 millimeters. Right kidney measures 9.5 centimeters. Left kidney measures 10.4 centimeters. There are questionable echogenic foci in the bilateral renal medullary spaces. The aorta is within normal limits. Spleen size is within normal limits. IMPRESSION: Exam limited by patient body habitus and bowel gas. Pancreas obscured. Surgically absent gallbladder without biliary ductal dilatation. Questionable echogenic foci in the bilateral renal medulla is. Previous CT 06/27/2017 did not show medullary stones. There are also no significant atherosclerotic plaques previously. Question whether this is a finding related to artifact from gain on the transducer as the periportal fat is also slightly increased echogenicity as well.
--- NOTE | 2017-12-23 20:42 | Emergency Department Report ---
ED Female HPI - General Chief complaint: Abdominal Pain Stated complaint: ABDOMINAL PAIN Time Seen by Provider: 12/23/17 20:41 Source: patient Mode of arrival: Ambulatory Limitations: No Limitations - Related Data Previous Rx's Medication Instructions Recorded Last Taken Type Famotidine/Ca Carb/Mag Hydrox 1 each PO BID #30 tab.chew 06/27/17 Unknown Rx [Pepcid Complete Tablet Chew] HYDROcodone/APAP 5-325 [[place] 1 each PO BID PRN #10 tablet 06/27/17 Unknown Rx 5-325 mg TAB] Allergies Allergy/AdvReac Type Severity Reaction Status Date / Time ibuprofen Allergy Unknown Verified 04/19/17 07:43 nortriptyline Allergy Anaphylaxis Verified 04/19/17 07:43 ED Review of Systems ROS: Stated complaint: ABDOMINAL PAIN Other details as noted in HPI ED Past Medical Hx - Past Medical History Hx Hypertension: Yes Hx CVA: No Hx Heart Attack/AMI: Yes Hx Congestive Heart Failure: No Hx Diabetes: No Hx Deep Vein Thrombosis: No Hx GERD: No Hx Arthritis: No Hx Headaches / Migraines: No Hx Asthma: No Hx COPD: No Hx Dementia: No Hx HIV: No - Surgical History Past Surgical History?: No - Social History Smoking Status: Never Smoker Substance Use Type: Alcohol - Medications Home Medications: Home Medications Medication Instructions Recorded Confirmed Last Taken Type Famotidine/Ca Carb/Mag Hydrox 1 each PO BID #30 tab.chew 06/27/17 Unknown Rx [Pepcid Complete Tablet Chew] HYDROcodone/APAP 5-325 [[place] 1 each PO BID PRN #10 tablet 06/27/17 Unknown Rx 5-325 mg TAB] ED Physical Exam - General Limitations: No Limitations ED Course Vital Signs 12/23/17 15:01 Temperature 98.2 F Pulse Rate 78 Respiratory 16 Rate Blood Pressure 134/96 O2 Sat by Pulse 96 Oximetry ED Medical Decision Making - Lab Data Result diagrams: 12/23/17 19:23 12/23/17 19:23 Critical care attestation.: If time is entered above; I have spent that time in minutes in the direct care of this critically ill patient, excluding procedure time. ED Disposition Condition: Stable Referrals: PRIMARY CARE, [Primary Care Provider] - 3-5 Days
--- NOTE | 2017-12-23 20:43 | Emergency Department Report ---
ED Abdominal Pain HPI - General Chief Complaint: Abdominal Pain Stated Complaint: ABDOMINAL PAIN Time Seen by Provider: 12/23/17 20:41 Source: patient, family Mode of arrival: Ambulatory Limitations: No Limitations - History of Present Illness Initial Comments: Patient reports abdominal pain and nausea that she been ongoing. Patient's that he has a lot of issues with his intestines in the past last colonoscopy was 8 years ago and 2009. Pain to upper abdomen is 7 out of 10 crampy and achy . Reports nausea without any vomiting. He said he had a history of acid reflux but he controlled after his diet. Denies any back pain. Denies any urinary burning frequency or urgency. Patient has a history of hypertension and CT in the past. [id number] pain medication taken without any relief. Patient said he feels dehydrated because he has not been able to keep anything down. Denies any fever or chills. Denies any diarrhea. He had similar incident in the past. Patient had a history of gallbladder surgery MD Complaint: abdominal pain, other Onset/Timin -: days(s) Location: LUQ, RUQ Radiation: none Migration to: no migration Severity: severe Severity scale (0 -10): 10 Quality: cramping, aching Consistency: constant Improves With: nothing Worsens With: nothing Context: other (history of gastritis and diverticulosis) Associated Symptoms: nausea, anorexia. denies: vomiting, diarrhea, fever, chills, constipation, dysuria, hematemesis, hematochezia, melena, hematuria, syncope Treatments Prior to Arrival: other ([id number] pain medication) - Related Data Previous Rx's Medication Instructions Recorded Last Taken Type Famotidine/Ca Carb/Mag Hydrox 1 each PO BID #30 tab.chew 06/27/17 Unknown Rx [Pepcid Complete Tablet Chew] HYDROcodone/APAP 5-325 [[place] 1 each PO BID PRN #10 tablet 06/27/17 Unknown Rx 5-325 mg TAB] Omeprazole Magnesium [PriLOSEC Otc] 20 mg PO QDAY 30 Days #30 tablet. Unknown Rx Ondansetron [Zofran Odt] 4 mg PO Q8H PRN #12 tab.rapdis 12/24/17 Unknown Rx Promethazine [Phenergan TAB] 50 mg PO Q12HR PRN #12 tab 12/24/17 Unknown Rx traMADol [Ultram] 50 mg PO Q6HR PRN #12 tablet 12/24/17 Unknown Rx Allergies Allergy/AdvReac Type Severity Reaction Status Date / Time ibuprofen Allergy Unknown Verified 04/19/17 07:43 nortriptyline Allergy Anaphylaxis Verified 04/19/17 07:43 ED Review of Systems ROS: Stated complaint: ABDOMINAL PAIN Other details as noted in HPI Comment: All other systems reviewed and negative Constitutional: no symptoms reported ENT: denies: throat pain Respiratory: no symptoms reported Cardiovascular: denies: chest pain, palpitations, dyspnea on exertion, edema, syncope, paroxysmal nocturnal dyspnea Gastrointestinal: abdominal pain, nausea. denies: vomiting, diarrhea, constipation, hematemesis, melena, hematochezia Genitourinary: denies: urgency, dysuria, frequency, hematuria, discharge, testicular pain, testicular mass Musculoskeletal: myalgia. denies: back pain, joint swelling, arthralgia Skin: denies: rash Neurological: denies: headache ED Past Medical Hx - Past Medical History Previous Medical History?: Yes Hx Hypertension: Yes Hx CVA: No Hx Heart Attack/AMI: Yes Hx Congestive Heart Failure: No Hx Diabetes: No Hx Deep Vein Thrombosis: No Hx GERD: Yes Hx Arthritis: No Hx Headaches / Migraines: No Hx Asthma: No Hx COPD: No Hx Dementia: No Hx HIV: No Additional medical history: Diverticulosis. Gastritis - Surgical History Past Surgical History?: No - Family History Family history: hypertension - Social History Smoking Status: Never Smoker Substance Use Type: Alcohol - Medications Home Medications: Home Medications Medication Instructions Recorded Confirmed Last Taken Type Famotidine/Ca Carb/Mag Hydrox 1 each PO BID #30 tab.chew 06/27/17 Unknown Rx [Pepcid Complete Tablet Chew] HYDROcodone/APAP 5-325 [[place] 1 each PO BID PRN #10 tablet 06/27/17 Unknown Rx 5-325 mg TAB] Omeprazole Magnesium [PriLOSEC Otc] 20 mg PO QDAY 30 Days #30 tablet. Unknown Rx Ondansetron [Zofran Odt] 4 mg PO Q8H PRN #12 tab.rapdis 12/24/17 Unknown Rx Promethazine [Phenergan TAB] 50 mg PO Q12HR PRN #12 tab 12/24/17 Unknown Rx traMADol [Ultram] 50 mg PO Q6HR PRN #12 tablet 12/24/17 Unknown Rx ED Physical Exam - General Limitations: No Limitations General appearance: alert, in no apparent distress - Head Head exam: Present: atraumatic, normocephalic, normal inspection - Eye Eye exam: Present: normal appearance, PERRL, EOMI. Absent: periorbital swelling , periorbital tenderness Pupils: Present: normal accommodation - ENT ENT exam: Present: normal orophraynx, mucous membranes dry, TM's normal bilaterally, normal external ear exam. Absent: normal exam - Neck Neck exam: Present: normal inspection, full ROM, other (no C-spine tenderness). Absent: tenderness, meningismus, lymphadenopathy, thyromegaly - Respiratory Respiratory exam: Present: normal lung sounds bilaterally. Absent: respiratory distress, wheezes, rales, rhonchi, stridor, chest wall tenderness, accessory muscle use, decreased breath sounds, prolonged expiratory - Cardiovascular Cardiovascular Exam: Present: regular rate, normal rhythm, normal heart sounds. Absent: systolic murmur, diastolic murmur - GI/Abdominal GI/Abdominal exam: Present: soft, tenderness (upper quadrant from mid to left upper), normal bowel sounds. Absent: distended, guarding, rebound, rigid, organomegaly, mass, bruit, pulsatile mass, hernia - Extremities Exam Extremities exam: Present: normal inspection, full ROM, normal capillary refill , other (no clubbing, cyanosis or edema. +2 pulses to all extremities and no neurovascular compromise). Absent: tenderness, pedal edema, joint swelling, calf tenderness - Back Exam Back exam: Present: normal inspection, full ROM, other (ambulates without any difficulties). Absent: tenderness, CVA tenderness (R), CVA tenderness (L), muscle spasm, paraspinal tenderness, vertebral tenderness, rash noted - Neurological Exam Neurological exam: Present: alert, oriented X3, normal gait, reflexes normal. Absent: motor sensory deficit - Psychiatric Psychiatric exam: Present: normal affect, normal mood - Skin Skin exam: Present: warm, dry, intact, normal color. Absent: rash ED Course Vital Signs 12/23/17 12/23/17 12/23/17 15:01 19:58 21:44 Temperature 98.2 F Pulse Rate 78 Respiratory 16 18 18 Rate Blood Pressure 134/96 O2 Sat by Pulse 96 Oximetry 12/23/17 22:59 Temperature Pulse Rate 60 Respiratory 18 Rate Blood Pressure 146/83 O2 Sat by Pulse 96 Oximetry - Reevaluation(s) Reevaluation #1: 12/23/17 22:15 Patient received Percocet 5/325 one tablet by mouth, Zofran 4 mg ODT and still complaining of nausea with abdominal pain. Abdominal exam positive tenderness to mid to left upper quadrant. Reevaluation #2: 12/23/17 23:52 Patient received normal saline 1 L due to dehydration, morphine 4 mg IV, Zofran 8 mg IV for abdominal pain and nausea. He said his pain is now down to 2 out of 10. ED Medical Decision Making - Lab Data Result diagrams: 12/23/17 19:23 12/23/17 19:23 Lab Results 12/23/17 12/23/17 12/23/17 Range/Units 19:23 19:23 21:40 WBC 9.2 (4.5-11.0) K/mm3 RBC 5.64 H (3.65-5.03) M/mm3 Hgb 15.2 (11.8-15.2) gm/dl Hct 47.2 H (35.5-45.6) % MCV 84 (84-94) fl MCH 27 L (28-32) pg MCHC 32 (32-34) % RDW 15.6 H (13.2-15.2) % Plt Count 238 (140-440) K/mm3 Lymph % (Auto) 20.0 (13.4-35.0) % [place] % (Auto) 6.9 (0.0-7.3) % Eos % (Auto) 1.3 (0.0-4.3) % Baso % (Auto) 0.3 (0.0-1.8) % Lymph # 1.8 (1.2-5.4) K/mm3 [place] # 0.6 (0.0-0.8) K/mm3 Eos # 0.1 (0.0-0.4) K/mm3 Baso # 0.0 (0.0-0.1) K/mm3 Seg Neutrophils % 71.5 H (40.0-70.0) % Seg Neutrophils # 6.6 (1.8-7.7) K/mm3 Sodium 139 (137-145) mmol/L Potassium 4.1 (3.6-5.0) mmol/L Chloride 97.4 L (98-107) mmol/L Carbon Dioxide 26 (22-30) mmol/L Anion Gap 20 mmol/L BUN 12 (9-20) mg/dL Creatinine 1.3 (0.8-1.5) mg/dL Estimated GFR > 60 ml/min BUN/Creatinine Ratio 9 % Glucose 91 (75-100) mg/dL Calcium 9.1 (8.4-10.2) mg/dL Total Bilirubin 0.50 (0.1-1.2) mg/dL AST 23 (5-40) units/L ALT 11 (7-56) units/L Alkaline Phosphatase 59 (35-129) units/L Total Protein 7.8 (6.3-8.2) g/dL Albumin 4.5 (3.9-5) g/dL Albumin/Globulin Ratio 1.4 % Lipase 24 (13-60) units/L Urine Color Yellow (Yellow) Urine Turbidity Clear (Clear) Urine pH 6.0 (5.0-7.0) Ur Specific [place] 1.026 (1.003-1.030) Urine Protein <15 mg/dl (Negative) mg/dL Urine Glucose (UA) Neg (Negative) mg/dL Urine Ketones Tr (Negative) mg/dL Urine Blood Neg (Negative) Urine Nitrite Neg (Negative) Urine Bilirubin Neg (Negative) Urine Urobilinogen < 2.0 (<2.0) mg/dL Ur Leukocyte Esterase Neg (Negative) Urine WBC (Auto) 1.0 (0.0-6.0) /HPF Urine RBC (Auto) 2.0 (0.0-6.0) /HPF Urine Mucus Few /HPF - Radiology Data Radiology results: report reviewed Patient with ultrasound of the abdomen completed which shows limited body habitus and bowel gas. Pancreas obscured. Surgical absent gallbladder without biliary duct dilatation. Questionable echogenic foci in the bilateral renal medullary. Previous CT 06/27/2017 did not show medullary stone. There are no significant atherosclerosis plaques previously question whether this is a finding related artifact from gain on the transducer as the periportal fat is also slightly increased in echogenicity. CT scan of the abdomen and pelvis shows gastric wall thickening and an not collapsed. Findings can most, commonly be seen with gastritis Scattered diverticuli in the descending colon without diverticulosis. 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 Remote rib fractures in the left fifth through ninth ribs which patient's studies had fracture of ribs in that area in the past. - Medical Decision Making ED course: Patient here complaining of abdominal pain that's been going on for 3 days with nausea without vomiting. Patient had ultrasound done of the abdomen which recommended CT scan of the abdomen. Please refer to radiology section for detail on CT scan and ultrasound. CT scan fine in for subacute rib fracture on the left fifth through 9 which patient is aware of any had history of for a fracture in the past. Patient is not having any pain in his left rib area. Also finding for possibly gastritis due to gastric wall thickening and. Patient also with diverticuli without diverticulitis which he is aware of. His last colonoscopy was in 2009 and I discussed the patient that he will need to have another colonoscopy. Patient also with granulomatous disease in right heel on after and also spleen. I discussed this with patient and he was unaware of this. He states that he's had multiple issues with his intestines and he just moved to [place] and does not have a primary care doctor but he does have access to primary care physician. 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 I also told him that he needs to call his insurance and find internal medicine doctor in his Zip code for management of multiple medical problems. Patient was nondistended discharge instruction and treatment plan. Patient was given normal saline 1 L due to dehydration and physical findings and trace ketones in his urine, CBC and BMP stable. He was given Percocet 5/325 one tablet and Zofran for ODT which did not relieve his pain or nausea. He was given Zofran 8 mg IV and morphine 4 mg IV which abdominal exam remains unchanged throughout ED stay. He had no episode of vomiting or diarrhea. Patient vital signs are stable and he is afebrile. Patient discharged home and prescription for Zofran to take if he is at work and get nauseated and Phenergan to take at home. Also discharged home with prescription for Ultram to manage pain and Prilosec for gastritis. Patient able to tolerate oral liquids in the emergency room without any nausea or vomiting. Critical care attestation.: If time is entered above; I have spent that time in minutes in the direct care of this critically ill patient, excluding procedure time. ED Disposition Clinical Impression: Diverticulosis of colon, Nausea alone, Dehydration, mild, Granulomatous adenopathy Abdominal pain Qualifiers: Abdominal location: upper abdomen, unspecified Qualified Code(s): R10.10 - Upper abdominal pain, unspecified Gastritis Qualifiers: Gastritis type: unspecified gastritis Chronicity: acute Gastritis bleeding: without bleeding Qualified Code(s): K29.00 - Acute gastritis without bleeding Disposition: - TO HOME OR SELFCARE Is pt being admited?: No Does the pt Need Aspirin: No Condition: Stable Instructions: Abdominal Pain (ED), Acute Nausea and Vomiting (ED), Dehydration (ED), Diverticulosis (ED), Diverticulosis Diet (ED), Colonoscopy (GEN), Gastritis (ED) Additional Instructions: Please avoid carbonated an acidic beverages or food. Increase fluid intake to 2-3 L of liquid to include water per day. 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 Follow-up with outside Medical Center for management of primary care problems but call your insurance company to get internal medicine doctor in the area. Take Prilosec for gastritis Please see diet on diverticulosis and discharge instruction paperwork You have abnormal findings on CT scan and lung area and will need to follow-up with lung doctor Prescriptions: Omeprazole Magnesium [PriLOSEC Otc] 20 mg PO QDAY 30 Days #30 tablet. Ondansetron [Zofran Odt] 4 mg PO Q8H PRN #12 tab.rapdis PRN Reason: Nausea And Vomiting Promethazine [Phenergan TAB] 50 mg PO Q12HR PRN #12 tab PRN Reason: Nausea And Vomiting traMADol [Ultram] 50 mg PO Q6HR PRN #12 tablet PRN Reason: Pain Referrals: PRIMARY CARE, [Primary Care Provider] - 12/27/17 [facility] [Outside] - 12/27/17 [facility] [Provider Group] - 3-5 Days MARK SALVADOR MD [Staff Physician] - 3-5 Days Forms: Accompanied Note, Work/School Release Form(ED)
[2017-12-23] MEDS ORDERED: ZOFRAN IV ONE (21:21)
[2017-12-23] MEDS ORDERED: NACL 0.9% 1000 ML 1,000 ML IV ONE (21:21)
[2017-12-23] MEDS ORDERED: MORPHINE IV ONE (21:21)
--- NOTE | 2017-12-23 22:11 | Cat Scan Report ---
FINAL REPORT EXAM: CT ABDOMEN PELVIS WO CON HISTORY: abdominal pain TECHNIQUE: Standard unenhanced CT of the abdomen and pelvis. Coronal and sagittal reconstruction was also performed. PRIORS: CT a/P 06/27/2017 FINDINGS: Within the abdomen, the liver, pancreas, gallbladder, adrenal glands, and kidneys are unremarkable. Multiple calcified granulomas in the spleen are present. The gastric wall appears generally thickened and not collapsed. No evidence for retroperitoneal or pelvic lymphadenopathy is seen. The bowel loops have normal caliber. No soft tissue mass, fluid collection, inflammatory change, or free air is seen within the abdomen or pelvis. The retrocecal appendix is normal. Within the pelvis, the bladder is unremarkable. The prostate is normal. No evidence for mass or lymphadenopathy is seen in the pelvis. Scattered diverticuli in the descending colon are noted without active diverticulitis. Images through the upper abdomen include the lung bases which are expanded and clear. Heavily calcified granulomatous lymph nodes in the right infrahilar region are noted. Bony structures show fractures involving the left lateral 5th through 9th ribs IMPRESSION: 1. Gastric wall thickening and not collapsed. Findings can most commonly be seen with gastritis. 2. Scattered diverticuli in the descending colon 3. Granulomatous disease in the right hilum and spleen 4. Remote rib fractures in the left 5th through 9th ribs.
[2017-12-23 22:18] LABS: Bilirubin,Urine NEG (Negative); Blood,Urine NEG (Negative); Color,Urine Yellow (Yellow); Mucus,Urine FEW /HPF; Nitrite,Urine NEG (Negative); Protein,Urine <15 mg/dL mg/dL (Negative); Urobilinogen,Urine < 2.0 mg/dL (<2.0)
[2017-12-23 23:23] VITALS: BP 146/83
== END 2017-12-24 00:26 | disposition home or self-care (01) ==
LOC: ED 14:51
DX: K29.00 Acute gastritis without bleeding (principal); K57.30 Diverticulosis of large intestine without perforation or abscess without bleeding; E86.0 Dehydration; R10.10 Upper abdominal pain, unspecified; R59.9 Enlarged lymph nodes, unspecified; I10 Essential (primary) hypertension; Z88.8 Allergy status to other drugs, medicaments and biological substances; K21.9 Gastro-esophageal reflux disease without esophagitis
CPT/HCPCS: 36415; 74176; 76700; 80053; 81001; 83690; 85025; 96361; 96374; 96375; 99284; J2270; J2405; J7030; Q0162

== ENCOUNTER 2018-08-04 09:53 | Emergency (ER) | payer BC, OTHER ==
[2018-08-04] MEDS ORDERED: NORCO 5/325 PO ONE (11:40)
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
--- NOTE | 2018-08-04 12:04 | XRay Report ---
ROUTINE CHEST, TWO VIEWS: HISTORY: chest pain. The trachea, heart, mediastinal contour, lung paul and bony thorax are unremarkable. IMPRESSION: Unremarkable chest x-ray. No change since 06/26/17.
[2018-08-04 13:52] LABS: Basophils % (Auto) 0.4 % (0.0-1.8); Eosinophils # (Auto) 0.5 K/mm3 (0.0-0.4); Eosinophils % (Auto) 7.6 % (0.0-4.3); Hematocrit 41.8 % (35.5-45.6); Hemoglobin 13.6 gm/dl (11.8-15.2); Lymphocytes # (Auto) 1.9 K/mm3 (1.2-5.4); Lymphocytes % (Auto) 31.1 % (13.4-35.0); Mean Corpuscular HGB Conc 33 % (32-34); Mean Corpuscular Hemoglobin 27 pg (28-32); Mean Corpuscular Volume 82 fl (84-94); Monocytes # (Auto) 0.4 K/mm3 (0.0-0.8); Monocytes % (Auto) 7.2 % (0.0-7.3); Platelet Count 230 K/mm3 (140-440); Red Cell Distribution Width 15.3 % (13.2-15.2)
[2018-08-04 14:08] LABS: BUN/Creatinine Ratio 10; Blood Urea Nitrogen 12 mg/dL (9-20); Calcium 9.6 mg/dL (8.4-10.2); Hemolysis Index 87
[2018-08-04] MEDS ORDERED: ZOFRAN ODT ONE (15:37)
--- NOTE | 2018-08-04 16:43 | Emergency Department Report ---
ED Chest Pain HPI - General Chief Complaint: Chest Pain Stated Complaint: CHEST PAIN/EYE Time Seen by Provider: 08/04/18 11:22 Source: patient Mode of arrival: Ambulatory Limitations: No Limitations - History of Present Illness Initial Comments: Mr. Snow is a 53-year-old male with history of coronary disease MS cardiac stent presents with 3 weeks of chest pain. 1 a year ago he was evaluated for chest pain with CT stress test. Chest pain was due to left rib fractures due to fall. He had a recent fall on the job. He seemed to have strained himself. Immediately after he had midsternal chest pain. Worse when he moves. Sternum is very tender to touch. He is also concerned for stye on his right eye. Otherwise his been in good health. Does not see a doctor on regular basis. Does not take any medications. MD Complaint: chest pain -: week(s) (3) Onset: during exertion Pain Location: substernal Severity: mild Severity scale (0 -10): 0 Quality: sharp Consistency: intermittent Improves With: movement Context: other (recent fall) - Related Data Previous Rx's Medication Instructions Recorded Last Taken Type Famotidine/Ca Carb/Mag Hydrox 1 each PO BID #30 tab.chew 06/27/17 Unknown Rx [Pepcid Complete Tablet Chew] HYDROcodone/APAP 5-325 [[place] 1 each PO BID PRN #10 tablet 06/27/17 Unknown Rx 5-325 mg TAB] Omeprazole Magnesium [PriLOSEC Otc] 20 mg PO QDAY 30 Days #30 tablet. Unknown Rx Ondansetron [Zofran Odt] 4 mg PO Q8H PRN #12 tab.rapdis 12/24/17 Unknown Rx Promethazine [Phenergan TAB] 50 mg PO Q12HR PRN #12 tab 12/24/17 Unknown Rx traMADol [Ultram] 50 mg PO Q6HR PRN #12 tablet 12/24/17 Unknown Rx traMADol [Ultram 50 MG tab] 50 mg PO Q6HR PRN #10 tablet 08/04/18 Unknown Rx Allergies Allergy/AdvReac Type Severity Reaction Status Date / Time ibuprofen Allergy Unknown Verified 04/19/17 07:43 nortriptyline Allergy Anaphylaxis Verified 04/19/17 07:43 Heart Score - HEART Score History: Slightly suspicious EKG: Normal Age: 45-65 Risk factors: 1-2 risk factors Troponin: < normal limit HEART Score: 2 ED Review of Systems ROS: Stated complaint: CHEST PAIN/EYE Other details as noted in HPI Comment: All other systems reviewed and negative Constitutional: denies: chills, fever Eyes: denies: eye pain, eye discharge, vision change ENT: denies: ear pain, throat pain Respiratory: denies: cough, shortness of breath, wheezing Cardiovascular: denies: chest pain, palpitations Endocrine: no symptoms reported Gastrointestinal: denies: abdominal pain, nausea, diarrhea Genitourinary: denies: urgency Skin: denies: rash, lesions ED Past Medical Hx - Past Medical History Hx Hypertension: Yes Hx CVA: No Hx Heart Attack/AMI: Yes Hx Congestive Heart Failure: No Hx Diabetes: No Hx Deep Vein Thrombosis: No Hx GERD: Yes Hx Arthritis: No Hx Headaches / Migraines: No Hx Asthma: No Hx COPD: No Hx Dementia: No Hx HIV: No Additional medical history: Diverticulosis. Gastritis - Surgical History Past Surgical History?: No Hx Coronary Stent: Yes - Social History Smoking Status: Never Smoker Substance Use Type: None - Medications Home Medications: Home Medications Medication Instructions Recorded Confirmed Last Taken Type Famotidine/Ca Carb/Mag Hydrox 1 each PO BID #30 tab.chew 06/27/17 Unknown Rx [Pepcid Complete Tablet Chew] HYDROcodone/APAP 5-325 [[place] 1 each PO BID PRN #10 tablet 06/27/17 Unknown Rx 5-325 mg TAB] Omeprazole Magnesium [PriLOSEC Otc] 20 mg PO QDAY 30 Days #30 tablet. Unknown Rx Ondansetron [Zofran Odt] 4 mg PO Q8H PRN #12 tab.rapdis 12/24/17 Unknown Rx Promethazine [Phenergan TAB] 50 mg PO Q12HR PRN #12 tab 12/24/17 Unknown Rx traMADol [Ultram] 50 mg PO Q6HR PRN #12 tablet 12/24/17 Unknown Rx traMADol [Ultram 50 MG tab] 50 mg PO Q6HR PRN #10 tablet 08/04/18 Unknown Rx ED Physical Exam - General Limitations: No Limitations General appearance: alert, in no apparent distress - Head Head exam: Present: atraumatic, normocephalic - Eye Eye exam: Present: other (small stye involving right lowe eyelid). Absent: scleral icterus, conjunctival injection - ENT ENT exam: Present: mucous membranes moist - Neck Neck exam: Present: normal inspection. Absent: tenderness, meningismus - Respiratory Respiratory exam: Present: normal lung sounds bilaterally. Absent: respiratory distress, wheezes - Cardiovascular Cardiovascular Exam: Present: regular rate, normal rhythm, normal heart sounds. Absent: systolic murmur, diastolic murmur, rubs, gallop - GI/Abdominal GI/Abdominal exam: Present: soft, normal bowel sounds. Absent: distended, tenderness, guarding, rebound - Rectal Rectal exam: Present: deferred - Extremities Exam Extremities exam: Present: normal inspection - Back Exam Back exam: Present: normal inspection - Neurological Exam Neurological exam: Present: alert, oriented X3 - Psychiatric Psychiatric exam: Present: normal affect, normal mood - Skin Skin exam: Present: warm, dry, intact, normal color. Absent: rash ED Course Vital Signs 08/04/18 08/04/18 08/04/18 10:39 11:44 11:46 Temperature 98.4 F 98.5 F Pulse Rate 88 90 Pulse Rate [ Sitting] Respiratory 20 20 Rate Blood Pressure 137/88 143/98 Blood Pressure 127/90 [Left] Blood Pressure [Sitting] O2 Sat by Pulse 99 Oximetry 08/04/18 08/04/18 08/04/18 11:50 11:52 15:00 Temperature 98.5 F Pulse Rate 90 Pulse Rate [ 90 Sitting] Respiratory 20 18 Rate Blood Pressure Blood Pressure 127/90 [Left] Blood Pressure 127/90 [Sitting] O2 Sat by Pulse 95 100 Oximetry 08/04/18 08/04/18 08/04/18 15:30 15:45 16:01 Temperature Pulse Rate 81 89 77 Pulse Rate [ Sitting] Respiratory 16 16 21 Rate Blood Pressure 141/85 141/74 Blood Pressure [Left] Blood Pressure [Sitting] O2 Sat by Pulse 95 96 94 Oximetry 08/04/18 08/04/18 08/04/18 16:15 16:30 16:45 Temperature Pulse Rate 75 76 87 Pulse Rate [ Sitting] Respiratory 17 19 20 Rate Blood Pressure 141/76 121/75 141/74 Blood Pressure [Left] Blood Pressure [Sitting] O2 Sat by Pulse 95 93 95 Oximetry OMAR score - Omar Score Age > 65: (0) No Aspirin use within the Past 7 Days: (0) No 3 or more CAD Risk Factors: (1) Yes 2 or more Angina events in past 24 hrs: (1) Yes Known CAD with more than 50% Stenosis: (0) No Elevated Cardiac Markers: (0) No ST Deviation Greater than 0.5mm: (0) No OMAR Score: 2 ED Medical Decision Making - Lab Data Result diagrams: 08/04/18 13:30 08/04/18 13:30 Laboratory Results - last 24 hr 08/04/18 08/04/18 13:30 13:30 WBC 5.9 RBC 5.10 H Hgb 13.6 Hct 41.8 MCV 82 L MCH 27 L MCHC 33 RDW 15.3 H Plt Count 230 Lymph % (Auto) 31.1 Pepin % (Auto) 7.2 Eos % (Auto) 7.6 H Baso % (Auto) 0.4 Lymph # 1.9 Pepin # 0.4 Eos # 0.5 H Baso # 0.0 Seg Neutrophils % 53.7 Seg Neutrophils # 3.2 Sodium 139 Potassium 5.0 Chloride 99.0 Carbon Dioxide 26 Anion Gap 19 BUN 12 Creatinine 1.2 Estimated GFR > 60 BUN/Creatinine Ratio 10 Glucose 93 Calcium 9.6 Troponin T < 0.010 - EKG Data -: EKG Interpreted by Mo EKG shows normal: sinus rhythm, axis, intervals, QRS complexes, ST-T waves Rate: normal - EKG Data When compared to previous EKG there are: no significant change, other (compared to 06/26/2017) - Radiology Data Radiology results: report reviewed CT chest stable right lung nodule - Medical Decision Making 1. Chest wall pain costochondritis related to previous chest wall injury and chest wall strain Patient had normal cardiac evaluation in June 2017, normal myocardial perfusion scan, patient deemed low risk for cardiac event, CTA ruled out PE and dissection at that time Today PERC negative for dc Rx: tramadol, CT chest obtained with hx of granulomatous dz, due to lack of primary care, wanted to rule out lung neoplastic process 2. right eye stye warm compress reassurance education Critical care attestation.: If time is entered above; I have spent that time in minutes in the direct care of this critically ill patient, excluding procedure time. ED Disposition Clinical Impression: Chest wall pain, Stye Disposition: DC-01 TO HOME OR SELFCARE Is pt being admited?: No Does the pt Need Aspirin: No Condition: Stable Instructions: Chest Pain (ED) Prescriptions: traMADol [Ultram 50 MG tab] 50 mg PO Q6HR PRN #10 tablet PRN Reason: Pain Referrals: PRIMARY CARE,MD [Primary Care Provider] - 3-5 Days Forms: Work/School Release Form(ED)
--- NOTE | 2018-08-04 17:39 | Cat Scan Report ---
FINAL REPORT EXAM: CT CHEST WO CON HISTORY: granulomatous disease of the lung chest pain TECHNIQUE: CT examination of the chest without IV contrast PRIORS: 06/27/2017 FINDINGS: Normal cardiac size without pericardial effusion. Normal caliber thoracic aorta. Normal-appearing esophagus. No hilar mass or mediastinal adenopathy. Prominent calcified granulomas again noted in the right hilum. Calcified granuloma in the spleen. Surgically absent gallbladder. No acute fracture. Multifocal slight degenerative change in the regional skeleton. No pneumothorax, pleural effusion, or focal pulmonary consolidation. 5 mm noncalcified pulmonary nodule stable in right middle lobe. No new lung nodule. This may be scar or noncalcified granuloma. IMPRESSION: No acute cardiopulmonary disease Stable prominent granulomatous calcification in right inferior hilum Stable 5 mm nodule in right middle lobe may be scar or noncalcified granuloma
[2018-08-04] MEDS ORDERED: PERCOCET 5/325 PO ONE (18:06)
[2018-08-04 18:30] VITALS: BP 140/86
== END 2018-08-04 18:28 | disposition home or self-care (01) ==
LOC: ED 09:53
DX: M94.0 Chondrocostal junction syndrome [Tietze] (principal); H00.022 Hordeolum internum right lower eyelid; I11.0 Hypertensive heart disease with heart failure; K21.9 Gastro-esophageal reflux disease without esophagitis; Z88.8 Allergy status to other drugs, medicaments and biological substances
CPT/HCPCS: 36415; 71046; 71250; 80048; 84484; 85025; 93005; 93010; Q0162

== ENCOUNTER 2019-01-16 16:19 | Emergency (ER) | payer OTHER ==
--- NOTE | 2019-01-16 16:27 | Emergency Department Report ---
Blank Doc - Documentation Documentation: This is a 53-year-old male that presents with n/v/d with left upper abdominal pain x3 days. This initial assessment diagnostic orders/clinical plan/treatment(s) is/are subject to change based on patient's health status, clinical progression and re- assessment by fellow clinical providers in the ED. Further treatment and workup at subsequent clinical providers discretion. Patient/guardians urged not to elope from ED s their condition may be serious if not clinically assessed and managed. Initial orders include: 1-Patient sent to [facility] for further evaluation and treatment 2- labs 3- UA
[2019-01-16 16:31] VITALS: BP 129/86
[2019-01-16 17:00] LABS: Basophils % (Auto) 0.3 % (0.0-1.8); Eosinophils # (Auto) 0.4 K/mm3 (0.0-0.4); Eosinophils % (Auto) 4.2 % (0.0-4.3); Hemoglobin 13.4 gm/dl (11.8-15.2); Lymphocytes # (Auto) 1.2 K/mm3 (1.2-5.4); Lymphocytes % (Auto) 11.4 % (13.4-35.0); Mean Corpuscular HGB Conc 35 % (32-34); Mean Corpuscular Volume 83 fl (84-94); Monocytes # (Auto) 0.8 K/mm3 (0.0-0.8); Monocytes % (Auto) 7.7 % (0.0-7.3); Platelet Count 210 K/mm3 (140-440); Red Blood Count 4.72 M/mm3 (3.65-5.03); Red Cell Distribution Width 14.6 % (13.2-15.2)
[2019-01-16 17:42] LABS: Alanine Aminotransferase 11 units/L (7-56); Albumin 4.1 g/dL (3.9-5); BUN/Creatinine Ratio 9; Blood Urea Nitrogen 11 mg/dL (9-20); Calcium 9.2 mg/dL (8.4-10.2); Hemolysis Index 12
[2019-01-16 17:52] LABS: Bilirubin,Urine NEG (Negative); Blood,Urine NEG (Negative); Color,Urine Yellow (Yellow); Mucus,Urine FEW /HPF; Protein,Urine <15 mg/dL mg/dL (Negative); Urobilinogen,Urine < 2.0 mg/dL (<2.0); WBC,Urine < 1.0 /HPF (0.0-6.0)
== END 2019-01-16 21:00 | disposition left against medical advice (07) ==
LOC: ED 16:19
DX: R19.7 Diarrhea, unspecified (principal); Z53.21 Procedure and treatment not carried out due to patient leaving prior to being seen by health care provider
CPT/HCPCS: 36415; 80053; 81001; 83690; 85025

== ENCOUNTER 2019-01-17 06:26 | Emergency (ER) | payer OTHER ==
[2019-01-17] MEDS ORDERED: NACL 0.9% 1000 ML 1,000 ML IV ONE (07:48)
[2019-01-17] MEDS ORDERED: TORADOL IV ONE (07:48)
[2019-01-17] MEDS ORDERED: ZOFRAN IV ONE (07:48)
--- NOTE | 2019-01-17 07:48 | Emergency Department Report ---
ED Abdominal Pain HPI - General Chief Complaint: Abdominal Pain Stated Complaint: DIARRHEA AND PAIN Time Seen by Provider: 01/17/19 07:45 Source: patient Mode of arrival: Ambulatory Limitations: No Limitations - History of Present Illness Initial Comments: This is a 53-year-old male nontoxic, well nourished in appearance, no acute signs of distress presents to the ED with c/o of nausea and vomiting and left sided upper abdominal pain. Patient describes vomiting as food content and yellow gastric acid. Patient describes abdominal pain as cramping and aching with level of 8/10. Patient denies chest pain, short of breath, fever, chills, headache, stiff neck, numbness or tingling. Patient denies any diarrhea or constipation. Patient denies any recent travels. Patient stated allergies to ibuprofen and nortriptylin but denies any allergies to toradol. Denies any significant PMH. MD Complaint: abdominal pain Location: LUQ Radiation: none Migration to: no migration Severity: mild Severity scale (0 -10): 8 Consistency: constant Improves With: nothing Worsens With: nothing Associated Symptoms: nausea, vomiting, diarrhea. denies: fever, chills, constipation, dysuria, hematemesis, hematochezia, melena, hematuria, anorexia, syncope - Related Data Previous Rx's Medication Instructions Recorded Last Taken Type Famotidine/Ca Carb/Mag Hydrox 1 each PO BID #30 tab.chew 06/27/17 Unknown Rx [Pepcid Complete Tablet Chew] HYDROcodone/APAP 5-325 [[place] 1 each PO BID PRN #10 tablet 06/27/17 Unknown Rx 5-325 mg TAB] Omeprazole Magnesium [PriLOSEC Otc] 20 mg PO QDAY 30 Days #30 tablet. 12/24/17 Unknown Rx Ondansetron [Zofran Odt] 4 mg PO Q8H PRN #12 tab.rapdis 12/24/17 Unknown Rx Promethazine [Phenergan TAB] 50 mg PO Q12HR PRN #12 tab 12/24/17 Unknown Rx traMADol [Ultram] 50 mg PO Q6HR PRN #12 tablet 12/24/17 Unknown Rx traMADol [Ultram 50 MG tab] 50 mg PO Q6HR PRN #10 tablet 08/04/18 Unknown Rx Acetaminophen/Codeine [Tylenol 1 tab PO Q6H PRN #14 tab 10/16/18 Unknown Rx /Codeine # 3 tab] Methocarbamol [Robaxin-750] 750 mg PO Q12H PRN #14 tablet 10/16/18 Unknown Rx predniSONE [Prednisone] 10 mg PO QAM 6 Days #1 tab.ds.pk 10/16/18 Unknown Rx Acetaminophen/Codeine [Tylenol 1 tab PO Q6H PRN #12 tab 11/03/18 Unknown Rx /Codeine # 3 tab] Methocarbamol [Robaxin TAB] 750 mg PO BID PRN #14 tablet 11/03/18 Unknown Rx Prednisone [predniSONE 10 mg 10 mg PO .TAPER #1 tab.ds.pk 11/03/18 Unknown Rx (6-Day Pack, 21 Tabs)] ALBUTEROL Inhaler (OR & NICU) 2 puff IH Q4HR PRN #1 inhalation 11/08/18 Unknown Rx [ProAir HFA Inhaler] Codeine Phosphate/Guaifenesin 180 ml PO Q12HR PRN #180 liquid 11/08/18 Unknown Rx [Guaifenesin-Codeine Syrup] Methocarbamol [Robaxin-750] 750 mg PO QDAY #5 tablet 11/08/18 Unknown Rx predniSONE [Deltasone] 20 mg PO DAILY #15 tablet 11/08/18 Unknown Rx Benzonatate [Tessalon Perles] 100 mg PO Q8HR PRN #12 capsule 11/10/18 Unknown Rx HYDROcodone/APAP 5-325 [[place] 1 each PO Q6HR PRN #12 tablet 11/10/18 Unknown Rx 5/325] Methocarbamol [Robaxin-750] 750 mg PO BID PRN #10 tablet 11/10/18 Unknown Rx levoFLOXacin [Levaquin] 750 mg PO QDAY #5 tablet 11/10/18 Unknown Rx Acetaminophen/Codeine [Tylenol 1 tab PO Q6H PRN #12 tab 01/17/19 Unknown Rx /Codeine # 3 tab] Ciprofloxacin HCl [Ciprofloxacin 500 mg PO Q12H #20 tab 01/17/19 Unknown Rx TAB] metroNIDAZOLE [Flagyl] 500 mg PO Q12HR #20 tab 01/17/19 Unknown Rx Allergies Allergy/AdvReac Type Severity Reaction Status Date / Time ibuprofen Allergy Unknown Verified 11/08/18 09:56 nortriptyline Allergy Anaphylaxis Verified 11/08/18 09:56 ED Review of Systems ROS: Stated complaint: DIARRHEA AND PAIN Other details as noted in HPI Constitutional: denies: chills, fever Eyes: denies: eye pain, eye discharge, vision change ENT: denies: ear pain, throat pain Respiratory: denies: cough, shortness of breath, wheezing Cardiovascular: denies: chest pain, palpitations Endocrine: no symptoms reported Gastrointestinal: abdominal pain, nausea, vomiting, diarrhea. denies: constipation, hematemesis, melena, hematochezia Genitourinary: denies: urgency, dysuria Musculoskeletal: denies: back pain, joint swelling, arthralgia Skin: denies: rash, lesions Neurological: denies: headache, weakness, paresthesias Psychiatric: denies: anxiety, depression Hematological/Lymphatic: denies: easy bleeding, easy bruising ED Past Medical Hx - Past Medical History Previous Medical History?: Yes Hx Hypertension: Yes Hx CVA: No Hx Heart Attack/AMI: Yes Hx Congestive Heart Failure: No Hx Diabetes: No Hx Deep Vein Thrombosis: No Hx GERD: Yes Hx Arthritis: No Hx Headaches / Migraines: No Hx Asthma: No Hx COPD: No Hx Dementia: No Hx HIV: No Additional medical history: Diverticulosis DJD. SPINE PAIN. Gastritis. IBS - Surgical History Past Surgical History?: Yes Hx Coronary Stent: Yes (x1) - Social History Smoking Status: Never Smoker Substance Use Type: Alcohol - Medications Home Medications: Home Medications Medication Instructions Recorded Confirmed Last Taken Type Famotidine/Ca Carb/Mag Hydrox 1 each PO BID #30 tab.chew 06/27/17 Unknown Rx [Pepcid Complete Tablet Chew] HYDROcodone/APAP 5-325 [[place] 1 each PO BID PRN #10 tablet 06/27/17 Unknown Rx 5-325 mg TAB] Omeprazole Magnesium [PriLOSEC Otc] 20 mg PO QDAY 30 Days #30 tablet. 12/24/17 Unknown Rx Ondansetron [Zofran Odt] 4 mg PO Q8H PRN #12 tab.rapdis 12/24/17 Unknown Rx Promethazine [Phenergan TAB] 50 mg PO Q12HR PRN #12 tab 12/24/17 Unknown Rx traMADol [Ultram] 50 mg PO Q6HR PRN #12 tablet 12/24/17 Unknown Rx traMADol [Ultram 50 MG tab] 50 mg PO Q6HR PRN #10 tablet 08/04/18 Unknown Rx Acetaminophen/Codeine [Tylenol 1 tab PO Q6H PRN #14 tab 10/16/18 Unknown Rx /Codeine # 3 tab] Methocarbamol [Robaxin-750] 750 mg PO Q12H PRN #14 tablet 10/16/18 Unknown Rx predniSONE [Prednisone] 10 mg PO QAM 6 Days #1 tab.ds.pk 10/16/18 Unknown Rx Acetaminophen/Codeine [Tylenol 1 tab PO Q6H PRN #12 tab 11/03/18 Unknown Rx /Codeine # 3 tab] Methocarbamol [Robaxin TAB] 750 mg PO BID PRN #14 tablet 11/03/18 Unknown Rx Prednisone [predniSONE 10 mg 10 mg PO .TAPER #1 tab.ds.pk 11/03/18 Unknown Rx (6-Day Pack, 21 Tabs)] ALBUTEROL Inhaler (OR & NICU) 2 puff IH Q4HR PRN #1 inhalation 11/08/18 Unknown Rx [ProAir HFA Inhaler] Codeine Phosphate/Guaifenesin 180 ml PO Q12HR PRN #180 liquid 11/08/18 Unknown Rx [Guaifenesin-Codeine Syrup] Methocarbamol [Robaxin-750] 750 mg PO QDAY #5 tablet 11/08/18 Unknown Rx predniSONE [Deltasone] 20 mg PO DAILY #15 tablet 11/08/18 Unknown Rx Benzonatate [Tessalon Perles] 100 mg PO Q8HR PRN #12 capsule 11/10/18 Unknown Rx HYDROcodone/APAP 5-325 [[place] 1 each PO Q6HR PRN #12 tablet 11/10/18 Unknown Rx 5/325] Methocarbamol [Robaxin-750] 750 mg PO BID PRN #10 tablet 11/10/18 Unknown Rx levoFLOXacin [Levaquin] 750 mg PO QDAY #5 tablet 11/10/18 Unknown Rx Acetaminophen/Codeine [Tylenol 1 tab PO Q6H PRN #12 tab 01/17/19 Unknown Rx /Codeine # 3 tab] Ciprofloxacin HCl [Ciprofloxacin 500 mg PO Q12H #20 tab 01/17/19 Unknown Rx TAB] metroNIDAZOLE [Flagyl] 500 mg PO Q12HR #20 tab 01/17/19 Unknown Rx ED Physical Exam - General Limitations: No Limitations General appearance: alert, in no apparent distress - Head Head exam: Present: atraumatic, normocephalic - Eye Eye exam: Present: normal appearance - Neck Neck exam: Present: normal inspection, full ROM. Absent: tenderness, meningismus, lymphadenopathy - Respiratory Respiratory exam: Present: normal lung sounds bilaterally. Absent: respiratory distress, wheezes, rales, rhonchi, stridor, chest wall tenderness, accessory muscle use, decreased breath sounds, prolonged expiratory - Cardiovascular Cardiovascular Exam: Present: regular rate, normal rhythm, normal heart sounds. Absent: irregular rhythm, systolic murmur, diastolic murmur, rubs, gallop - GI/Abdominal GI/Abdominal exam: Present: soft, tenderness, normal bowel sounds. Absent: distended, guarding, rebound, rigid, diminished bowel sounds, hyperactive bowel sounds, hypoactive bowel sounds - Expanded GI/Abdominal Exam Expanded GI/Abdominal exam: Absent: psoas sign, Baker's sign, Rovsing's sign, tenderness at [place]bur[place]'s Point, ascites - Rectal Rectal exam: Present: deferred - Extremities Exam Extremities exam: Present: normal inspection, full ROM - Back Exam Back exam: Present: normal inspection, full ROM - Neurological Exam Neurological exam: Present: alert, oriented X3 - Psychiatric Psychiatric exam: Present: normal affect, normal mood - Skin Skin exam: Present: warm, dry, intact, normal color. Absent: rash ED Course Vital Signs 01/17/19 06:29 Temperature 97.6 F Pulse Rate 94 H Respiratory 18 Rate Blood Pressure 149/85 O2 Sat by Pulse 98 Oximetry - Reevaluation(s) Reevaluation #1: 01/17/19 08:17 Patient is speaking in full sentences with no signs of distress noted. - Consultations Consultation #1: 01/17/19 08:55 Patient has been consulted with [facility] about patient history, physical exam, and labs/CT results and agrees to ED plan of care and discharge plan of care. ED Medical Decision Making - Medical Decision Making This is a 53-year-old male that presents with diverticulitis. Patient is stable and was examined by me. There is slight abdominal tenderness. Negative signs of symptoms of appendicitis. Labs obtained less then 24 hours ago on 01/16/2019. UA obtained. CT with contrast of abdomen obtained and dictated by the radiologist. Patient is notified of the report with no questions noted by the patient. Vital signs are stable prior to discharge. PAtient received medical treatment in the ED which patient stated symptoms has resolved and subsided. A by mouth challenge has been obtained and patient tolerated well with no nausea vomiting. Patient was notified of strict precautions of appendicitis symptoms and to return to the ED if symptoms occurs as soon as possible. Patient was also instructed to Follow-up with a primary care doctor in 3-5 days or if symptoms worsen and continue return to emergency room as soon as possible. At time of discharge, the patient does not seem toxic or ill in appearance. No acute signs of distress noted. Patient agrees to discharge treatment plan of care. No further questions noted by the patient. Critical care attestation.: If time is entered above; I have spent that time in minutes in the direct care of this critically ill patient, excluding procedure time. ED Disposition Clinical Impression: Diverticulitis Disposition: DC-01 TO HOME OR SELFCARE Is pt being admited?: No Does the pt Need Aspirin: No Condition: Stable Instructions: Diverticulitis (ED) Additional Instructions: Follow-up with a primary care doctor in 3-5 days or if symptoms worsen and continue return to emergency room as soon as possible. Do not operate any machinery while taking Tylenol with codeine as this may cause drowsiness. Prescriptions: Acetaminophen/Codeine [Tylenol /Codeine # 3 tab] 1 tab PO Q6H PRN #12 tab PRN Reason: Pain , Severe (7-10) Ciprofloxacin HCl [Ciprofloxacin TAB] 500 mg PO Q12H #20 tab metroNIDAZOLE [Flagyl] 500 mg PO Q12HR #20 tab Referrals: [facility] [Other] - 3-5 Days PRIMARY MD AALIYAH [Referring] - 3-5 Days RICARDO VINCENT MD [Staff Physician] - 3-5 Days [facility] [Outside] - 3-5 Days Forms: Work/School Release Form(ED)
--- NOTE | 2019-01-17 08:42 | Cat Scan Report ---
CT ABDOMEN PELVIS WITH CONTRAST: HISTORY: Upper abdominal pain. COMPARISON: 12/23/17. TECHNIQUE: Helical CT in 1.25mm intervals following IV contrast. Sagittal and coronal reconstructions. FINDINGS: Lung bases: Within normal limits. Chronic granulomatous disease is noted. Liver: Normal. Biliary system: Cholecystectomy. Pancreas: Normal. Spleen: Normal. Kidneys/ureters/bladder: Normal. Adrenal glands: Normal. Aorta: Normal. Intestines: There are scattered diverticula in the descending and sigmoid colon. There is focal inflammatory change in the mid descending colon consistent with acute diverticulitis. No evidence for free air or abscess. The remaining bowel loops are unremarkable. Appendix: Normal. Ascites: None. Adenopathy: None. Musculoskeletal: Normal. IMPRESSION: Acute diverticulitis of the descending colon.
[2019-01-17 09:17] VITALS: BP 132/82
== END 2019-01-17 09:14 | disposition home or self-care (01) ==
LOC: ED 06:26
DX: K57.92 Diverticulitis of intestine, part unspecified, without perforation or abscess without bleeding (principal); I10 Essential (primary) hypertension; K21.9 Gastro-esophageal reflux disease without esophagitis; Z95.1 Presence of aortocoronary bypass graft; Z88.5 Allergy status to narcotic agent
CPT/HCPCS: 74177; 96361; 96374; 96375; 99283; J1885; J2405; J7030; Q9967

== ENCOUNTER 2019-01-28 15:23 | Emergency (ER) | payer OTHER ==
--- NOTE | 2019-01-28 16:26 | Emergency Department Report ---
Chief Complaint: Abdominal Pain Stated Complaint: SEVERE STOMACH PAIN Time Seen by Provider: 01/28/19 16:23 - HPI History of Present Illness: CC ABD PAIN GENERALIZED PAIN N/V/D BLOODY STOOL NO CP OR SOB SEEN HERE RECENT FOR SAME RAN OUT OF MEDS ANTIBIOTIC, NAUSEA MED RX NONE PSH NONE PMH HTH STENT SP NC OBESE MSE COMPLETED - Exam Vital Signs: Vital Signs 01/28/19 16:21 Temperature 98.6 F Pulse Rate 85 Respiratory 16 Rate Blood Pressure 118/84 O2 Sat by Pulse 96 Oximetry MSE screening note: Focused history and physical exam performed. Due to findings the following was ordered: ED Disposition for MSE Condition: Stable
[2019-01-28 17:27] LABS: Hematocrit 41.1 % (35.5-45.6); Hemoglobin 13.3 gm/dl (11.8-15.2); Mean Corpuscular HGB Conc 32 % (32-34); Mean Corpuscular Volume 83 fl (84-94); Platelet Count 273 K/mm3 (140-440); Red Blood Count 4.95 M/mm3 (3.65-5.03)
[2019-01-28 17:48] LABS: Alanine Aminotransferase 11 units/L (7-56); Albumin 4.3 g/dL (3.9-5); BUN/Creatinine Ratio 7; Blood Urea Nitrogen 8 mg/dL (9-20); Calcium 9.3 mg/dL (8.4-10.2); Hemolysis Index 4
[2019-01-28 18:01] LABS: Bilirubin,Direct < 0.2 mg/dL (0-0.2)
[2019-01-28 18:06] LABS: Basophils % (Manual) 0 % (0.0-1.8); Ovalocytes Few; Total Cells Counted 100
[2019-01-28] MEDS ORDERED: ZOFRAN IV ONE (19:50)
[2019-01-28] MEDS ORDERED: NACL 0.9% 1000 ML 1,000 ML IV ONE (19:50)
--- NOTE | 2019-01-28 19:50 | Emergency Department Report ---
ED Abdominal Pain HPI - General Chief Complaint: Abdominal Pain Stated Complaint: SEVERE STOMACH PAIN Time Seen by Provider: 01/28/19 16:23 Source: patient Mode of arrival: Ambulatory Limitations: No Limitations - History of Present Illness Initial Comments: Pt is a 54 yo male who presents to the ED with c/o N/V/D that began a month ago. He has associated generalized abdominal cramping. Pt was evaluated in the ED for the same sx on 01/17/[address] abd/pelvis which showed diverticulitis. He states when he had diverticulitis the pain was more on the LLQ but that has resolved and now just has generalized cramping and churning sensation. The megan ent states he completed his course of cipro/flagyl as prescribed. He states since he ran out of the nausea and pain medication he is still having N/V/D and abd discomfort. He denies any fever, blood in the stool or emesis, or pus present in the stool. The patient has been tolerating PO intake. The patient has not followed up with the GI doctor. he also has a PMHx of IBS. Severity scale (0 -10): 10 - Related Data Previous Rx's Medication Instructions Recorded Last Taken Type ALBUTEROL Inhaler (OR & NICU) 2 puff IH Q4HR PRN #1 inhalation 11/08/18 Unknown Rx [ProAir HFA Inhaler] Dicyclomine [Bentyl] 20 mg PO QID PRN #20 bottle 01/28/19 Unknown Rx Omeprazole Magnesium [PriLOSEC Otc] 20 mg PO QDAY 30 Days #30 tablet. 01/28/19 Unknown Rx Ondansetron [Zofran Odt] 4 mg PO Q8HR PRN #10 tab.rapdis 01/28/19 Unknown Rx Allergies Allergy/AdvReac Type Severity Reaction Status Date / Time ibuprofen Allergy Unknown Verified 11/08/18 09:56 nortriptyline Allergy Anaphylaxis Verified 11/08/18 09:56 ED Review of Systems ROS: Stated complaint: SEVERE STOMACH PAIN Other details as noted in HPI Comment: All other systems reviewed and negative ED Past Medical Hx - Past Medical History Previous Medical History?: Yes Hx Hypertension: Yes (no medication needed) Hx CVA: No Hx Heart Attack/AMI: Yes Hx Congestive Heart Failure: No Hx Diabetes: No Hx Deep Vein Thrombosis: No Hx GERD: Yes Hx Arthritis: No Hx Headaches / Migraines: No Hx Asthma: No Hx COPD: No Hx Dementia: No Hx HIV: No Additional medical history: Diverticulosis DJD. SPINE PAIN (stenosis), ulcers. Gastritis. IBS - Surgical History Past Surgical History?: Yes Hx Coronary Stent: Yes (x1) - Social History Smoking Status: Never Smoker Substance Use Type: None - Medications Home Medications: Home Medications Medication Instructions Recorded Confirmed Last Taken Type ALBUTEROL Inhaler (OR & NICU) 2 puff IH Q4HR PRN #1 inhalation 11/08/18 Unknown Rx [ProAir HFA Inhaler] Dicyclomine [Bentyl] 20 mg PO QID PRN #20 bottle 01/28/19 Unknown Rx Omeprazole Magnesium [PriLOSEC Otc] 20 mg PO QDAY 30 Days #30 tablet. 01/28/19 Unknown Rx Ondansetron [Zofran Odt] 4 mg PO Q8HR PRN #10 tab.rapdis 01/28/19 Unknown Rx ED Physical Exam - General Limitations: No Limitations General appearance: alert, in no apparent distress - Head Head exam: Present: atraumatic, normocephalic - ENT ENT exam: Present: mucous membranes moist - Respiratory Respiratory exam: Present: normal lung sounds bilaterally. Absent: respiratory distress, wheezes, rales, rhonchi, stridor, chest wall tenderness, accessory muscle use, decreased breath sounds, prolonged expiratory - Cardiovascular Cardiovascular Exam: Present: regular rate, normal rhythm, normal heart sounds. Absent: systolic murmur, rubs, gallop - GI/Abdominal GI/Abdominal exam: Present: soft, normal bowel sounds, other (no doron abdominal tenderness to palpation, no peritoneal signs ). Absent: distended, tenderness, guarding, rebound, rigid - Neurological Exam Neurological exam: Present: alert, oriented X3 - Psychiatric Psychiatric exam: Present: normal affect, normal mood - Skin Skin exam: Present: warm, dry, intact ED Course Vital Signs 01/28/19 01/28/19 16:21 23:44 Temperature 98.6 F 98.4 F Pulse Rate 85 90 Respiratory 16 14 Rate Blood Pressure 118/84 Blood Pressure 122/74 [Left] O2 Sat by Pulse 96 98 Oximetry ED Medical Decision Making - Lab Data Result diagrams: 01/28/19 17:12 01/28/19 17:12 Laboratory Results - last 24 hr 01/28/19 01/28/19 17:12 17:12 WBC 11.3 H RBC 4.95 Hgb 13.3 Hct 41.1 MCV 83 L MCH 27 L MCHC 32 RDW 15.0 Plt Count 273 Eos % (Auto) Clip Riveter Add Manual Diff Complete Total Counted 100 Seg Neuts % (Manual) 56.0 Band Neutrophils % 0 Lymphocytes % (Manual) 18.0 Reactive Lymphs % (Man) 0 Monocytes % (Manual) 5.0 Eosinophils % (Manual) 21.0 H Basophils % (Manual) 0 Metamyelocytes % 0 Myelocytes % 0 Promyelocytes % 0 Blast Cells % 0 Nucleated RBC % Not Reportable Seg Neutrophils # Man 6.3 Band Neutrophils # 0.0 Lymphocytes # (Manual) 2.0 Abs React Lymphs (Man) 0.0 Monocytes # (Manual) 0.6 Eosinophils # (Manual) 2.4 H Basophils # (Manual) 0.0 Metamyelocytes # 0.0 Myelocytes # 0.0 Promyelocytes # 0.0 Blast Cells # 0.0 WBC Morphology Not Reportable Hypersegmented Neuts Not Reportable Hyposegmented Neuts Not Reportable Hypogranular Neuts Not Reportable Smudge Cells Not Reportable Toxic Granulation Not Reportable Toxic Vacuolation Not Reportable Dohle Bodies Not Reportable Pelger-Huet Anomaly Not Reportable Kavitha Rods Not Reportable Platelet Estimate Appears normal Clumped Platelets Not Reportable Plt Clumps, EDTA Not Reportable Large Platelets Not Reportable Giant Platelets Not Reportable Platelet Satelliting Not Reportable Plt Morphology Comment Not Reportable RBC Morphology Not Reportable Dimorphic RBCs Not Reportable Polychromasia Not Reportable Hypochromasia Not Reportable Poikilocytosis Not Reportable Anisocytosis Not Reportable Microcytosis Not Reportable Macrocytosis Not Reportable Spherocytes Not Reportable Pappenheimer Bodies Not Reportable Sickle Cells Not Reportable Target Cells Not Reportable Tear Drop Cells Not Reportable Ovalocytes Few Helmet Cells Not Reportable Marcelino-Malakoff Bodies Not Reportable Junior Rings Not Reportable [place] Cells Not Reportable Bite Cells Not Reportable Crenated Cell Not Reportable Elliptocytes Not Reportable Acanthocytes (Spur) Not Reportable Rouleaux Not Reportable Hemoglobin C Crystals Not Reportable Schistocytes Not Reportable Malaria parasites Not Reportable [place] Bodies Not Reportable Hem Pathologist Commnt No Sodium 140 Potassium 4.3 Chloride 101.5 Carbon Dioxide 26 Anion Gap 17 BUN 8 L Creatinine 1.2 Estimated GFR > 60 BUN/Creatinine Ratio 7 Glucose 114 H Calcium 9.3 Total Bilirubin 0.30 Direct Bilirubin < 0.2 Indirect Bilirubin 0.1 AST 24 ALT 11 Alkaline Phosphatase 50 Total Protein 7.1 Albumin 4.3 Albumin/Globulin Ratio 1.5 Lipase 25 - Medical Decision Making Pt presents with N/V/D and generalized abdominal cramping x1 month. Pt had a CT abd/pelvis on 01/17 and completed course of antibiotics for diverticulitis. Pt states he previously had LLQ pain with diverticulitis but now just has generalized cramping and churning. Pt has not followed up with GI. Denies any fever. Denies any blood or pus in the stool. Pts pain is better after one dose of pain medication. Labs are WNL. VSS. Afebrile. Will again refer pt to GI medicine. Will give pt zofran, bentyl, and omeprazole. Advised to return to the emergency room if any new or worsening symptoms. Critical care attestation.: If time is entered above; I have spent that time in minutes in the direct care of this critically ill patient, excluding procedure time. ED Disposition Clinical Impression: Nausea vomiting and diarrhea Abdominal pain Qualifiers: Abdominal location: generalized Qualified Code(s): R10.84 - Generalized abdominal pain Disposition: TO HOME OR SELFCARE Is pt being admited?: No Does the pt Need Aspirin: No Condition: Stable Instructions: Acute Nausea and Vomiting (ED), Abdominal Pain (ED) Additional Instructions: Follow up with GI in the next couple of days. Follow up with your primary care doctor in the next 2-3 days. Prescriptions: Dicyclomine [Bentyl] 20 mg PO QID PRN #20 bottle PRN Reason: Spasms Omeprazole Magnesium [PriLOSEC Otc] 20 mg PO QDAY 30 Days #30 tablet. Ondansetron [Zofran Odt] 4 mg PO Q8HR PRN #10 tab.rapdis PRN Reason: Nausea Referrals: [facility] [Provider Group] - 3-5 Days [facility] M[facility] FAY MD [Primary Care Provider] - 3-5 Days Forms: Work/School Release Form(ED) Time of Disposition: 21:33 Print Language: UZBEK
[2019-01-28] MEDS ORDERED: MORPHINE IV ONE (19:52)
[2019-01-28 23:45] VITALS: BP 122/74
== END 2019-01-28 22:00 | disposition home or self-care (01) ==
LOC: ED 15:23
DX: R10.84 Generalized abdominal pain (principal); R11.2 Nausea with vomiting, unspecified; R19.7 Diarrhea, unspecified; I10 Essential (primary) hypertension; I25.2 Old myocardial infarction; K21.9 Gastro-esophageal reflux disease without esophagitis; K58.9 Irritable bowel syndrome, unspecified; Z95.5 Presence of coronary angioplasty implant and graft; Z88.6 Allergy status to analgesic agent; Z88.8 Allergy status to other drugs, medicaments and biological substances
CPT/HCPCS: 36415; 80048; 80076; 83690; 85007; 85025; 96361; 96374; 96375; 99283; J2270; J2405; J7030

== ENCOUNTER 2019-02-13 20:41 | Emergency (ER) | payer OTHER ==
[2019-02-13 21:13] VITALS: BP 122/94
--- NOTE | 2019-02-13 21:13 | Emergency Department Report ---
Chief Complaint: Allergic Reaction Stated Complaint: ALLERGIC REACTION/SOB Time Seen by Provider: 02/13/19 21:11 - HPI History of Present Illness: allergy- rash itching-- took benadryl no known exposure no sob or cp pmh cad djd chronic pain ibs/gerd/colitis htn has [place] cig rx none mse completed - Exam Vital Signs: Vital Signs 02/13/19 20:58 Temperature 98.3 F Respiratory 18 Rate Blood Pressure 122/97 MSE screening note: Focused history and physical exam performed. Due to findings the following was ordered: ED Disposition for MSE Condition: Stable
[2019-02-13] MEDS ORDERED: PEPCID PO ONE (22:25)
[2019-02-13] MEDS ORDERED: ATARAX PO ONE (22:25)
[2019-02-13] MEDS ORDERED: DELTASONE PO ONE (22:25)
--- NOTE | 2019-02-13 22:28 | Emergency Department Report ---
- General Chief complaint: Allergic Reaction Stated complaint: ALLERGIC REACTION/SOB Time Seen by Provider: 02/13/19 21:11 Source: patient Mode of arrival: Ambulatory Limitations: No Limitations - History of Present Illness Initial comments: 54-year-old -[place] male presents to the emergency room reporting hive- like lesions all over with itchiness. Patient admits to nausea. Admits to generalized weakness that started about 3 days ago. This progressively having pain and burning to eyes. He reports he is use Benadryl at 2 PM he reports that it helps. Patient denies any shortness of breathing did not seem right nose nasal congestion or sneezing. Patient has a significant past medical history of 3 MIs. Gastritis colitis. Patient's currently takes no medications on a daily basis area patient reports no new foods or detergents or no new soaps. Has no pets in the home and has not recently traveled. MD complaint: rash -: days(s) (3) Severity scale (0 -10): 0 Quality: other (itchy) Consistency: intermittent Improves with: medication (Benadryl) Context: none Associated symptoms: denies other symptoms Treatments Prior to Arrival: Benadryl (at 2 PM) - Related Data Previous Rx's Medication Instructions Recorded Last Taken Type ALBUTEROL Inhaler (OR & NICU) 2 puff IH Q4HR PRN #1 inhalation 11/08/18 Unknown Rx [ProAir HFA Inhaler] Dicyclomine [Bentyl] 20 mg PO QID PRN #20 bottle 01/28/19 Unknown Rx Omeprazole Magnesium [PriLOSEC Otc] 20 mg PO QDAY 30 Days #30 tablet. 01/28/19 Unknown Rx Ondansetron [Zofran Odt] 4 mg PO Q8HR PRN #10 tab.rapdis 01/28/19 Unknown Rx Ketotifen Fumarate [Zaditor] 1 drop OP QDAY #1 bottle 02/13/19 Unknown Rx Loratadine [Claritin] 10 mg PO DAILY #30 tablet 02/13/19 Unknown Rx Prednisone [predniSONE 5 mg (6-Day 5 mg PO .TAPER #1 tab.ds.pk 02/13/19 Unknown Rx Pack, 21 Tabs)] Allergies Allergy/AdvReac Type Severity Reaction Status Date / Time ibuprofen Allergy Unknown Verified 11/08/18 09:56 nortriptyline Allergy Anaphylaxis Verified 11/08/18 09:56 Abscess Boil HPI - HPI Chief Complaint: Allergic Reaction Stated Complaint: ALLERGIC REACTION/SOB Time Seen by Provider: 02/13/19 21:11 Home Medications: Previous Rx's Medication Instructions Recorded Last Taken Type ALBUTEROL Inhaler (OR & NICU) 2 puff IH Q4HR PRN #1 inhalation 11/08/18 Unknown Rx [ProAir HFA Inhaler] Dicyclomine [Bentyl] 20 mg PO QID PRN #20 bottle 01/28/19 Unknown Rx Omeprazole Magnesium [PriLOSEC Otc] 20 mg PO QDAY 30 Days #30 tablet. 01/28/19 Unknown Rx Ondansetron [Zofran Odt] 4 mg PO Q8HR PRN #10 tab.rapdis 01/28/19 Unknown Rx Ketotifen Fumarate [Zaditor] 1 drop OP QDAY #1 bottle 02/13/19 Unknown Rx Loratadine [Claritin] 10 mg PO DAILY #30 tablet 02/13/19 Unknown Rx Prednisone [predniSONE 5 mg (6-Day 5 mg PO .TAPER #1 tab.ds.pk 02/13/19 Unknown Rx Pack, 21 Tabs)] Allergies/Adverse Reactions: Allergies Allergy/AdvReac Type Severity Reaction Status Date / Time ibuprofen Allergy Unknown Verified 11/08/18 09:56 nortriptyline Allergy Anaphylaxis Verified 11/08/18 09:56 ED Review of Systems ROS: Stated complaint: ALLERGIC REACTION/SOB Other details as noted in HPI Comment: All other systems reviewed and negative ED Past Medical Hx - Past Medical History Hx Hypertension: Yes (no medication needed) Hx CVA: No Hx Heart Attack/AMI: Yes Hx Congestive Heart Failure: No Hx Diabetes: No Hx Deep Vein Thrombosis: No Hx GERD: Yes Hx Arthritis: No Hx Headaches / Migraines: No Hx Asthma: No Hx COPD: No Hx Dementia: No Hx HIV: No Additional medical history: Diverticulosis DJD. SPINE PAIN (stenosis), ulcers. Gastritis. IBS - Surgical History Hx Coronary Stent: Yes (x1) - Social History Smoking Status: Never Smoker Substance Use Type: None - Medications Home Medications: Home Medications Medication Instructions Recorded Confirmed Last Taken Type ALBUTEROL Inhaler (OR & NICU) 2 puff IH Q4HR PRN #1 inhalation 11/08/18 Unknown Rx [ProAir HFA Inhaler] Dicyclomine [Bentyl] 20 mg PO QID PRN #20 bottle 01/28/19 Unknown Rx Omeprazole Magnesium [PriLOSEC Otc] 20 mg PO QDAY 30 Days #30 tablet. 01/28/19 Unknown Rx Ondansetron [Zofran Odt] 4 mg PO Q8HR PRN #10 tab.rapdis 01/28/19 Unknown Rx Ketotifen Fumarate [Zaditor] 1 drop OP QDAY #1 bottle 02/13/19 Unknown Rx Loratadine [Claritin] 10 mg PO DAILY #30 tablet 02/13/19 Unknown Rx Prednisone [predniSONE 5 mg (6-Day 5 mg PO .TAPER #1 tab.ds.pk 02/13/19 Unknown Rx Pack, 21 Tabs)] ED Physical Exam - General Limitations: No Limitations General appearance: alert, in no apparent distress - Head Head exam: Present: atraumatic, normocephalic - Eye Eye exam: Present: EOMI - ENT ENT exam: Present: mucous membranes moist - Neck Neck exam: Present: normal inspection - Respiratory Respiratory exam: Present: normal lung sounds bilaterally. Absent: respiratory distress - Cardiovascular Cardiovascular Exam: Present: regular rate, normal rhythm. Absent: systolic mu rmur, diastolic murmur, rubs, gallop - GI/Abdominal GI/Abdominal exam: Present: soft, normal bowel sounds. Absent: distended - Extremities Exam Extremities exam: Present: normal inspection - Back Exam Back exam: Present: normal inspection - Neurological Exam Neurological exam: Present: alert, oriented X3 - Psychiatric Psychiatric exam: Present: normal affect, normal mood - Expanded Skin Exam Expanded Type of lesion: Present: rash Distribution of rash: generalized Description of rash: Present: erythematous (mild). Absent: tenderness ED Course Vital Signs 02/13/19 02/13/19 02/13/19 20:58 21:11 22:50 Temperature 98.3 F 98.8 F Pulse Rate 103 H 88 Respiratory 18 18 16 Rate Blood Pressure 122/97 122/94 O2 Sat by Pulse 97 97 Oximetry ED Medical Decision Making - Medical Decision Making Patient has been evaluated by this provider and a CBC. Patient be given Pepcid 20 mg by mouth, Atarax 25 mg by mouth and prednisone 40 mg by mouth. I discussed patient that I will refer him to an palm and back forger patient verbalizes understanding. Patient requests a marine engine mechanic is close by to him. Critical care attestation.: If time is entered above; I have spent that time in minutes in the direct care of this critically ill patient, excluding procedure time. ED Disposition Clinical Impression: Rash and nonspecific skin eruption Disposition: DC-01 TO HOME OR SELFCARE Is pt being admited?: No Does the pt Need Aspirin: No Condition: Stable Instructions: Acute Rash (ED) Additional Instructions: Please take medication as prescribed. Follow up with the primary care provider as well as an palm and back forger. I have listed several below for your convenience. Prescriptions: Loratadine [Claritin] 10 mg PO DAILY #30 tablet Prednisone [predniSONE 5 mg (6-Day Pack, 21 Tabs)] 5 mg PO .TAPER #1 tab.ds.pk Ketotifen Fumarate [Zaditor] 1 drop OP QDAY #1 bottle Referrals: [facility] [Primary Care Provider] - 3-5 Days [facility] [Provider Group] - 3-5 Days [facility] [Provider Group] - 3-5 Days RICARDO VINCNET MD [Staff Physician] - 3-5 Days CHANELLE STEWART JR, MD [Staff Physician] - 3-5 Days Forms: Accompanied Note, Work/School Release Form(ED)
== END 2019-02-13 22:50 | disposition home or self-care (01) ==
LOC: ED 20:41
DX: R21 Rash and other nonspecific skin eruption (principal); L29.9 Pruritus, unspecified; R53.1 Weakness; R11.0 Nausea; H57.89 Other specified disorders of eye and adnexa; I10 Essential (primary) hypertension; I25.2 Old myocardial infarction; K21.9 Gastro-esophageal reflux disease without esophagitis; K58.9 Irritable bowel syndrome, unspecified; Z95.5 Presence of coronary angioplasty implant and graft; Z88.6 Allergy status to analgesic agent; Z88.8 Allergy status to other drugs, medicaments and biological substances; Z79.899 Other long term (current) drug therapy
CPT/HCPCS: 99282; J7512